=== PATIENT | male | born 1955 | race African-American/Black ===

== ENCOUNTER 2017-07-06 02:21 | Emergency (ER) | payer MEDICARE, OTHER ==
[~2017-07-06] VITALS: Ht 175.3 cm; Wt 140.6 kg
[~2017-07-06 02:21] MED LIST: ALBUTEROL2.5 MG/3 M HHN; AMLODIPINE BESY10 MG ORAL; ASPIR-LOW81 MG ORAL; ATORVASTATIN CA40 MG ORAL; ATORVASTATIN CA80 MG ORAL; GABAPENTIN300 MG ORAL; GLIPIZIDE5 MG ORAL; GLUCOSE4 GM PO; LISINOPRIL20 MG ORAL; METFORMIN HCL1000 M1 ORAL; METOPROLOL TART25 MG ORAL; NORVASC10 MG ORAL; OMEPRAZOLE20 M2 ORAL; PLAVIX75 MG ORAL; SIMETHICONE80 MG ORAL; TYLENOL EXTRA500 MG ORAL
[2017-07-06 02:29] VITALS: BP 164/96
[2017-07-06] MEDS ORDERED: LORazepam Inj 2mg/ml 1ml ONE (02:39)
[2017-07-06] MEDS ORDERED: LORazepam Inj 2mg/ml 1ml IM ONE (02:45)
[2017-07-06] MEDS ORDERED: Sodium Chloride 500ML 500 ML IV ONE (02:51)
[2017-07-06 03:12] LABS: EOSINOPHILS % (AUTO) 3.6 % (0.0-3.0); HEMATOCRIT 37.5 % (42.0-52.0); HEMOGLOBIN 12.2 G/DL (14.2-18.0); LYMPHOCYTES % (AUTO) 38.9 % (20.0-45.0); MEAN CORPUSCULAR VOLUME 95 FL (80-99); MONOCYTES % (AUTO) 3.2 % (1.0-10.0); NEUTROPHILS % (AUTO) 53.2 % (45.0-75.0); PLATELET COUNT 306 K/UL (150-450); RED BLOOD COUNT 3.95 M/UL (4.70-6.10); WHITE BLOOD COUNT 8.3 K/UL (4.8-10.8)
[2017-07-06 03:35] LABS: ANION GAP 9 mmol/L (5-15); BLOOD UREA NITROGEN 10 mg/dL (7-18); CALCIUM 7.8 MG/DL (8.5-10.1); CARBON DIOXIDE 26 MMOL/L (21-32); CHLORIDE 102 MMOL/L (98-107); CREATININE 1.2 MG/DL (0.55-1.30); POTASSIUM 3.7 MMOL/L (3.5-5.1); SODIUM 137 MMOL/L (136-145)
[2017-07-06] MEDS ORDERED: levETIRAcetam 1,000mg/NS100ml 100 ML IVPB ONE (03:45)
[2017-07-06 03:50] LABS: ALANINE AMINOTRANSFERASE 20 U/L (12-78); ALBUMIN 3.6 G/DL (3.4-5.0); ALBUMIN/GLOBULIN RATIO 0.8 (1.0-2.7); ALKALINE PHOSPHATASE 78 U/L (46-116); ASPARTATE AMINO TRANSFERASE 13 U/L (15-37); BILIRUBIN,TOTAL 0.4 MG/DL (0.2-1.0); CREATINE KINASE 476 U/L (26-308)
[2017-07-06] MEDS ORDERED: KEPPRA500 M4 ORAL (05:27)
--- NOTE | 2017-07-06 05:28 | Emergency Room Report ---
History of Present Illness General Chief Complaint: Dyspnea/Respdistress Source: Patient, EMS Present Illness HPI This is a 62-year-old male with history of high blood pressure diabetes and asthma. He present with chief complaint of shortness of breath. Onset tonight. Is a chronic problem for him. He said he get it every day. No nausea no vomiting. No chest pain. Worse with exertion. Similar symptom in the past. He was admitted to [facility] and beginning of the month and said that they kept him and did an angiogram. Said that there is no blockage to his heart. Denies any nausea vomiting. Denies any fever or chills. Slightly worse tonight and has vertigo with room spinning.. Does have a history of seizure but not on any medication. Allergies: Coded Allergies: No Known Allergies (Unverified , 07/06/17) Patient History Past Medical History: see triage record, old chart reviewed, DM, HTN, asthma Past Surgical History: other Pertinent Family History: none Social History: Denies: smoking, alcohol use, drug use Immunizations: other Reviewed Nursing Documentation: PMH: Agreed, PSxH: Agreed Nursing Documentation-PMH Past Medical History: No History, Except For Hx Hypertension: Yes Hx Asthma: Yes Review of Systems Eye: Denies: eye pain, blurred vision ENT: Denies: ear pain, nose congestion, throat swelling Respiratory: Reports: shortness of breath, Denies: cough Cardiovascular: Denies: chest pain, palpitations Gastrointestinal: Denies: abdominal pain, diarrhea, nausea, vomiting Musculoskeletal: Denies: back pain, joint pain Skin: Denies: rash Neurological: Denies: headache, numbness Endocrine: Denies: increased thirst, increased urine Hematologic/Lymphatic: Denies: easy bruising All Other Systems: negative except mentioned in HPI Physical Exam Vital Signs Date Time Temp Pulse Resp B/P (MAP) Pulse Ox O2 Delivery O2 Flow Rate FiO2 07/06/17 02:18 89 16 154/96 98 Room Air 07/06/17 02:29 97.6 vitals with high blood pressure Sp02 EP Interpretation: reviewed, normal General Appearance: well appearing, no apparent distress, alert Head: normocephalic, atraumatic Eyes: bilateral eye PERRL, bilateral eye EOMI ENT: hearing grossly normal, normal pharynx Neck: full range of motion, supple, no meningismus Respiratory: chest non-tender, lungs clear, normal breath sounds Cardiovascular #1: regular rate, rhythm, no murmur Gastrointestinal: normal bowel sounds, non tender, no mass, no organomegaly, no bruit, non-distended Musculoskeletal: back normal, gait/station normal, normal range of motion Psychiatric: mood/affect normal Skin: warm/dry Medical Decision Making Diagnostic Impression: Primary Impression: Dyspnea Qualified Codes: R06.00 - Dyspnea, unspecified Additional Impressions: Seizure Morbid obesity with BMI of 45.0-49.9, adult ER Course Patient presents with shortness of breath. X-rays unremarkable. When he arrived he started having a tonic-clonic seizure activity lasting about a minute. No incontinence of bowel or urine. No tongue laceration. It broke with Ativan. Troponin negative. EKG unremarkable. I see no evidence of ACS the, and dissection to name a few. The fact that he had an angiogram that was negative less than 30 years ago is reassuring. We'll discharge home. Symptoms resolved. His dyspnea may be secondary to his obesity. Could be sleep apnea. Lab Results Impression labs unremarkable EKG Diagnostic Results Rate: normal Rhythm: NSR ST Segments: no acute changes ASA given to the pt in ED: Yes Rhythm Strip Diag. Results Rhythm Strip Time: 05:26 EP Interpretation: yes Rate: 100 Rhythm: NSR, no PVC's, no ectopy Chest X-Ray Diagnostic Results Chest X-Ray Diagnostic Results : Chest X-Ray Ordered: Yes # of Views/Limited/Complete: 1 View Indication: Chest Pain Interpretation: no consolidation, no effusion, no pneumothorax, no acute cardiopulmonary disease Impression: No acute disease Electronically Signed by: Lacho Remy MD Last Vital Signs Date Time Temp Pulse Resp B/P (MAP) Pulse Ox O2 Delivery O2 Flow Rate FiO2 07/06/17 02:29 97.6 114 16 164/96 98 Room Air Status: improved Disposition: HOME, SELF-CARE Condition: Stable Scripts Levetiracetam (KEPPRA) 500 Mg Tablet 500 MG ORAL EVERY 12 HOURS, #60 TAB 0 Refills Prov: LACHO REMY M.D. 07/06/17 Referrals: NOT CHOSEN IPA/,REFERRING (PCP) Additional Instructions: Followup your DrDorene in 7 days. Return if symptom worsen LACHO REMY M.D. Jul 06, 2017 05:28
[2017-07-06 05:30] VITALS: BP 142/79
[2017-07-06 06:00] LABS: BILIRUBIN, URINE NEGATIVE (NEGATIVE); COLOR,URINE YELLOW; GLUCOSE, URINE (UA) 4+ (NEGATIVE); KETONES,URINE NEGATIVE (NEGATIVE); LEUKOCYTE ESTERASE ,URINE NEGATIVE (NEGATIVE); NITRITE,URINE NEGATIVE (NEGATIVE); PH,URINE 6 (4.5-8.0); PROTEIN,URINE 3+ (NEGATIVE); UROBILINOGEN,URINE NORMAL MG/DL (0.0-1.0)
[2017-07-06 06:48] VITALS: BP 148/92
[2017-07-06 07:01] VITALS: BP 148/92
[2017-07-06 07:19] LABS: APPEARANCE,URINE SLIGHTLY CLOUDY
--- NOTE | 2017-07-06 11:19 | Diagnostic Imaging Report ---
Indication: Chest pain Technique: One view of the chest Comparison: none Findings: Body habitus limits evaluation. The heart is enlarged. The lungs and pleural spaces are clear. Heart size is normal. Impression: No acute process
--- NOTE | 2017-07-18 00:18 | Cardiology Report ---
APPROVED REPORT EKG Measurement Heart [id number] Sinus tachycardia with premature atrial complexes LAS Incomplete right bundle branch block Abnormal ECG
== END 2017-07-06 07:02 | disposition home or self-care (01) ==
LOC: EDBD 02:21 → EMR 03:00 → MERGE 03:00 → EMR 07:02
DX: R06.00 Dyspnea, unspecified (principal); R56.9 Unspecified convulsions; E66.01 Morbid (severe) obesity due to excess calories; Z68.42 Body mass index [BMI] 45.0-49.9, adult; E11.9 Type 2 diabetes mellitus without complications; I10 Essential (primary) hypertension; J45.909 Unspecified asthma, uncomplicated
CPT/HCPCS: 36415; 71010; 80053; 80307; 81003; 82550; 82553; 84484; 85025; 87086; 93005; 96361; 96365; 96375; 99284; J1953; J7040

== ENCOUNTER 2017-08-31 09:43 | Emergency (ER) | payer MEDICARE, OTHER ==
[~2017-08-31] VITALS: Ht 175.3 cm; Wt 120.2 kg
[~2017-08-31 09:43] MED LIST changes: +KEPPRA500 M4 ORAL
[2017-08-31 09:45] VITALS: BP 158/89
[2017-08-31] MEDS ORDERED: Ketorolac 30mg Inj IM ONE (10:00)
[2017-08-31] MEDS ORDERED: Norco 5mg/325mg tab ORAL ONE (10:00)
[2017-08-31] MEDS ORDERED: NORCO 5-325 TA1 EACH ORAL (10:18)
[2017-08-31 10:25] VITALS: BP 150/86
--- NOTE | 2017-08-31 10:51 | Emergency Room Report ---
History of Present Illness General Chief Complaint: Pain Source: Patient, Medical Record Present Illness HPI 62-year-old male presents ED for evaluation. Patient presented by EMS with right knee pain. Denies any recent injury. Pain is chronic for the last one year but worse over the last several weeks. Patient was told that he may be a knee replacement. Pain is throbbing, 9/10, nonradiating. Notes pain but is able to bear weight. No other aggravating or relieving factors. Denies any other associated symptoms Allergies: Coded Allergies: No Known Allergies (Unverified , 02/27/15) Patient History Past Medical History: HTN, asthma, GERD, CVA/TIA, psych hx Past Surgical History: none Pertinent Family History: none Social History: Denies: smoking, alcohol use, drug use Immunizations: UTD Reviewed Nursing Documentation: PMH: Agreed, PSxH: Agreed Nursing Documentation-PMH Past Medical History: No History, Except For Hx Cardiac Problems: Yes - MT Hx Hypertension: Yes Hx Pacemaker: No Hx Asthma: Yes Hx COPD: No Hx Diabetes: Yes Hx Cancer: No Hx Gastrointestinal Problems: Yes - GERD Hx Dialysis: No History Of Psychiatric Problem: Yes - Depression Hx Neurological Problems: Yes Hx Cerebrovascular Accident: No Hx Transient Ischemic Attacks: Yes Hx Seizures: No Hx Vertigo: Yes Hx Dizziness: Yes Hx Weakness: Yes Review of Systems All Other Systems: negative except mentioned in HPI Physical Exam Vital Signs Date Time Temp Pulse Resp B/P (MAP) Pulse Ox O2 Delivery O2 Flow Rate FiO2 08/31/17 09:25 97.8 75 16 158/89 100 Room Air 97.9 Sp02 EP Interpretation: reviewed, normal General Appearance: no apparent distress, alert, GCS 15, non-toxic, obese Head: normocephalic Eyes: bilateral eye normal inspection, bilateral eye PERRL ENT: normal ENT inspection Neck: normal inspection Respiratory: normal inspection Cardiovascular #1: normal inspection Gastrointestinal: normal inspection Rectal: deferred Genitourinary: no CVA tenderness Musculoskeletal: normal range of motion, tender - R knee Neurologic: alert, oriented x3, responsive, motor strength/tone normal, sensory intact, speech normal Psychiatric: normal inspection Skin: normal inspection Lymphatic: normal inspection Medical Decision Making Diagnostic Impression: Primary Impression: Knee pain Qualified Codes: M25.561 - Pain in right knee; G89.29 - Other chronic pain ER Course Hospital Course 62-year-old male presents to ED complaining of R knee pain no trauma Differential diagnoses include: Fracture, dislocation, sprain, contusion, bursitis Clinical course Patient placed on stretcher. After initial history, physical exam reveals an obese male in no acute distress. There is some tenderness to the right knee. Full range of motion. Given obese nature, history of chronic knee pain and recommendation for knee replacement I do not believe patient requires further workup at this time. No recent trauma to require repeat imaging Given pain meds here. Marcell wrap applied. Recommend followup with orthopedics to consider knee replacement Diagnosis - knee pain stable and discharged to home with prescription for [place]. apply ice. elevate. Followup with PMD. Return to ED if symptoms recur or worsen Last Vital Signs Date Time Temp Pulse Resp B/P (MAP) Pulse Ox O2 Delivery O2 Flow Rate FiO2 08/31/17 10:25 97.9 08/31/17 10:25 83 16 150/86 100 Room Air Status: improved Disposition: HOME, SELF-CARE Condition: Stable Scripts Hydrocodone Bit/Acetaminophen 5-325* (NORCO 5-325*) 1 Each Tablet 1 TAB ORAL Q6H Y for For Pain, #20 TAB 0 Refills Prov: ALEC BRYANT M.D. 08/31/17 Patient Instructions: Knee Pain, [id number] ALEC BRYANT M.D. Aug 31, 2017 10:51
== END 2017-08-31 11:00 | disposition home or self-care (01) ==
LOC: EDBD 09:43 → EMR 10:00
DX: M25.561 Pain in right knee (principal); G89.29 Other chronic pain; I10 Essential (primary) hypertension; J45.909 Unspecified asthma, uncomplicated; K21.9 Gastro-esophageal reflux disease without esophagitis; I25.2 Old myocardial infarction; F32.9 Major depressive disorder, single episode, unspecified; Z86.73 Personal history of transient ischemic attack (TIA), and cerebral infarction without residual deficits
CPT/HCPCS: 96372; 99283; J1885

== ENCOUNTER 2018-02-23 21:31 | Inpatient (IN) | payer MEDICARE, OTHER ==
[~2018-02-23] VITALS: Ht 177.8 cm; Wt 117.9 kg
[~2018-02-23 21:31] MED LIST changes: +NORCO 5-325 TA1 EACH ORAL
[2018-02-24 01:10] VITALS: BP 133/76
[2018-02-24] MEDS ORDERED: BENADRYL25 M3 PO (03:09)
[2018-02-24] MEDS ORDERED: LD2JL30 TOPIC (03:09)
[2018-02-24] MEDS ORDERED: VENTOLIN HFA18 GM INH (03:09)
[2018-02-24] MEDS ORDERED: NORVASC10 MG ORAL (03:09)
[2018-02-24] MEDS ORDERED: METFORMIN HCL500 M1 ORAL (03:09)
[2018-02-24] MEDS ORDERED: NORCO 10-325 T1 EACH ORAL (03:09)
[2018-02-24] MEDS ORDERED: BACLOFEN10 MG ORAL (03:09)
[2018-02-24] MEDS ORDERED: PEPCID AC20 M2 PO (03:09)
[2018-02-24] MEDS ORDERED: GABAPENTIN800 MG ORAL (03:09)
[2018-02-24] MEDS ORDERED: LIPITOR80 MG ORAL (03:09)
[2018-02-24] MEDS ORDERED: LISINOPRIL5 MG ORAL (03:09)
[2018-02-24] MEDS ORDERED: Albuterol 90mcg Inhaler 8gm INH PRN (03:15)
[2018-02-24 04:00] VITALS: BP 110/65
[2018-02-24 05:07] LABS: BASOPHILS % (AUTO) 0.8 % (0.0-2.0); EOSINOPHILS % (AUTO) 3.5 % (0.0-3.0); HEMATOCRIT 33.5 % (42.0-52.0); HEMOGLOBIN 11.2 G/DL (14.2-18.0); MEAN CORPUSCULAR VOLUME 94 FL (80-99); MONOCYTES % (AUTO) 6.9 % (1.0-10.0); NEUTROPHILS % (AUTO) 56.9 % (45.0-75.0); PLATELET COUNT 167 K/UL (150-450); RED BLOOD COUNT 3.58 M/UL (4.70-6.10); RED CELL DISTRIBUTION WIDTH 11.5 % (11.6-14.8); WHITE BLOOD COUNT 6.2 K/UL (4.8-10.8)
[2018-02-24 05:22] LABS: PHOSPHORUS 3.5 MG/DL (2.5-4.9)
[2018-02-24 05:30] LABS: ALANINE AMINOTRANSFERASE 101 U/L (12-78); ALBUMIN 3.3 G/DL (3.4-5.0); ALKALINE PHOSPHATASE 78 U/L (46-116); ANION GAP 9 mmol/L (5-15); ASPARTATE AMINO TRANSFERASE 115 U/L (15-37); BILIRUBIN,TOTAL 0.6 MG/DL (0.2-1.0); BLOOD UREA NITROGEN 12 mg/dL (7-18); CALCIUM 8.3 MG/DL (8.5-10.1); CARBON DIOXIDE 28 MMOL/L (21-32); CHLORIDE 105 MMOL/L (98-107); CREATININE 1.3 MG/DL (0.55-1.30); POTASSIUM 3.8 MMOL/L (3.5-5.1); SODIUM 141 MMOL/L (136-145)
[2018-02-24] MEDS: NovoLOG Insulin Flexpen SUBQ SCH ×4 (06:35→20:53)
[2018-02-24] MEDS: Heparin 5000 units/ml inj SUBQ SCH ×3 (06:36→20:54)
[2018-02-24] MEDS: GlipiZIDE 5mg tab ORAL SCH ×2 (06:36→16:43)
[2018-02-24] MEDS: HYDROcodone/Acetamin 10/325 tab ORAL PRN (06:42)
[2018-02-24 08:00] VITALS: BP 123/75
[2018-02-24] MEDS: metFORMIN 500mg tab ORAL SCH ×2 (08:38→17:32)
[2018-02-24] MEDS: Aspirin Baby 81mg ORAL SCH (08:38)
[2018-02-24] MEDS: Lisinopril 10mg tab ORAL SCH (08:39)
[2018-02-24] MEDS ORDERED: Albuterol/Ipratropium 3ml neb HHN PRN (10:45)
--- NOTE | 2018-02-24 10:51 | Consultation ---
History of Present Illness General Date patient seen: Feb 24, 2018 Time patient seen: 09:30 Chief Complaint: chest pain, SOB Referring physician: dr Ortez Reason for Consultation: SOB/pulm consult Present Illness HPI 63 y/old male with PMH significant for HTN, DM, CAD, questionable NC, hyperlipidemia, CVA, asthma initially presented to [facility] with complaint of chest pain. Upon evaluation troponin was negative , EKG revealed normal sinus rhythm, no acute ischemic changes Noted elevated d-dimer Chest x-ray was unremarkable Patient was transferred to [facility] for further management Upon questioning patient complained of intermittent chest pain with associated shortness of breath. He reported history of NC. He did have cardiac catheterization in the past, but no stents were placed as per patient. Pulse oximetry stable on room air, no tachypnea, no tachycardia Noted elevated LFT Patient denied smoking and illicit street drugs, but admits to alcohol use 2- 3 times a week Patient was admitted to telemetry floor for further management Allergies: Coded Allergies: No Known Allergies (Unverified , 02/27/15) Medication History Scheduled Albuterol Sulfate (Ventolin Hfa), 1 PUFF INH EVERY 6 HOURS, (Reported) Albuterol Sulfate* (Albuterol Sulfate Hhn*), 2.5 MG HHN Q6HRT Amlodipine Besylate (Norvasc), 10 MG ORAL DAILY, (Reported) Aspirin* (Aspir-Low*), 81 MG ORAL DAILY, (Reported) Atorvastatin (Lipitor), 40 MG ORAL BEDTIME, (Reported) Baclofen* (Baclofen*), 10 MG ORAL THREE TIMES A DAY, (Reported) Gabapentin* (Gabapentin*), 800 MG ORAL THREE TIMES A DAY, (Reported) Glipizide* (Glipizide*), 5 MG ORAL BIDAC, (Reported) Lidocaine HCL 2% Jelly* (Lidocaine Jelly 2%*), 5 ML TOPIC DAILY, (Reported) Lisinopril (Lisinopril*), 10 MG ORAL DAILY, (Reported) Metformin Hcl* (Metformin Hcl*), 500 MG ORAL TWICE A DAY, (Reported) Scheduled PRN Acetaminophen* (Tylenol Extra Strength*), 500 MG ORAL Q6H PRN for Mild Pain/ Temp > 100.5, (Reported) Diphenhydramine HCl (Benadryl), 25 MG PO BID PRN for Itching, (Reported) Hydrocodone Bit/Acetaminophen 10-325* (Homer 10-325*), 1 TAB ORAL Q6H PRN for For Pain, (Reported) Miscellaneous Medications Famotidine (Pepcid Ac), 20 MG PO, (Reported) Discontinued Medications Amlodipine Besylate (Norvasc), 5 MG ORAL DAILY Discontinued Reason: Medication dose changed Atorvastatin Calcium* (Lipitor*), 80 MG ORAL BEDTIME, (Reported) Discontinued Reason: Medication dose changed Clopidogrel Bisulfate* (Plavix*), 75 MG ORAL DAILY Discontinued Reason: Pt stopped taking med Gabapentin* (Gabapentin*), 300 MG ORAL THREE TIMES A DAY, (Reported) Discontinued Reason: Medication dose changed Hydrocodone Bit/Acetaminophen 5-325* (Homer 5-325*), 1 TAB ORAL Q6H PRN for For Pain Discontinued Reason: Medication dose changed Levetiracetam (Keppra), 500 MG ORAL EVERY 12 HOURS Discontinued Reason: Pt stopped taking med Lisinopril (Lisinopril*), 20 MG ORAL DAILY, (Reported) Discontinued Reason: Medication dose changed Metformin Hcl* (Metformin Hcl*), 1,000 MG ORAL DAILY, (Reported) Discontinued Reason: Medication dose changed Metoprolol Tartrate* (Metoprolol Tartrate*), 12.5 MG ORAL BID, (Reported) Discontinued Reason: Pt stopped taking med Omeprazole (Omeprazole), 20 MG ORAL DAILY, (Reported) Discontinued Reason: Pt stopped taking med Simethicone* (Simethicone*), 80 MG ORAL Q8H PRN for Gas, (Reported) Discontinued Reason: Pt stopped taking med Patient History History Provided By: Patient Healthcare decision maker Resuscitation status Full Code Advanced Directive on File No Past Medical/Surgical History Past Medical/Surgical History: (1) Hyperlipidemia (2) HTN (hypertension) (3) DM (diabetes mellitus) (4) CAD (coronary artery disease) Review of Systems Constitutional: Reports: weakness Eye: Reports: blurred vision ENT: Reports: other - dental problems Cardiovascular: Reports: see HPI Gastrointestinal: Reports: constipation Genitourinary: Reports: no symptoms Musculoskeletal: Reports: muscle pain Skin: Reports: no symptoms Psychiatric: Reports: other - anxiety Neurological: Reports: other - hx of TIA, CVA Endocrine: Reports: other - DM Hematologic/Lymphatic: Reports: no symptoms Physical Exam General Appearance: no apparent distress, alert Lines, tubes and drains: peripheral HEENT: normocephalic, atraumatic, anicteric, mucous membranes moist Neck: non-tender, supple, normal inspection Respiratory/Chest: lungs clear - with moderate air exchange , no respiratory distress, no accessory muscle use Cardiovascular/Chest: normal rate, regular rhythm - SR on tele, distant heart sounds Abdomen: non tender, soft - obese Extremities: normal range of motion, non-tender, no calf tenderness, normal capillary refill Skin Exam: warm/dry Neurologic: no motor/sensory deficits, alert, oriented x 3, responsive Musculoskeletal: normal muscle bulk Last 24 Hour Vital Signs Date Time Temp Pulse Resp B/P (MAP) Pulse Ox O2 Delivery O2 Flow Rate FiO2 02/24/18 09:00 Room Air 02/24/18 08:39 123/75 02/24/18 08:38 77 123/75 02/24/18 08:00 97.4 77 22 123/75 (91) 100 97.4 02/24/18 07:57 72 02/24/18 04:00 97.7 71 20 110/65 (80) 96 97.7 02/24/18 04:00 73 02/24/18 01:10 97.7 74 20 133/76 (95) 94 97.7 02/24/18 01:01 Room Air 02/24/18 01:00 73 Intake and Output 02/23/18 02/24/18 19:00 07:00 Intake Total 480 ml Output Total 425 ml Balance 55 ml Intake Oral 480 ml Output Urine Total 425 ml Laboratory Tests Test 02/24/18 04:45 White Blood Count 6.2 K/UL (4.8-10.8) Red Blood Count 3.58 M/UL (4.70-6.10) L Hemoglobin 11.2 G/DL (14.2-18.0) L Hematocrit 33.5 % (42.0-52.0) L Mean Corpuscular Volume 94 FL (80-99) Mean Corpuscular Hemoglobin 31.3 PG (27.0-31.0) H Mean Corpuscular Hemoglobin Concent 33.4 G/DL (32.0-36.0) Red Cell Distribution Width 11.5 % (11.6-14.8) L Platelet Count 167 K/UL (150-450) Mean Platelet Volume 9.9 FL (6.5-10.1) Neutrophils (%) (Auto) 56.9 % (45.0-75.0) Lymphocytes (%) (Auto) 32.0 % (20.0-45.0) Monocytes (%) (Auto) 6.9 % (1.0-10.0) Eosinophils (%) (Auto) 3.5 % (0.0-3.0) H Basophils (%) (Auto) 0.8 % (0.0-2.0) Sodium Level 141 MMOL/L (136-145) Potassium Level 3.8 MMOL/L (3.5-5.1) Chloride Level 105 MMOL/L (98-107) Carbon Dioxide Level 28 MMOL/L (21-32) Anion Gap 9 mmol/L (5-15) Blood Urea Nitrogen 12 mg/dL (7-18) Creatinine 1.3 MG/DL (0.55-1.30) Estimat Glomerular Filtration Rate > 60 mL/min (>60) Glucose Level 284 MG/DL (74-106) H Hemoglobin A1c 8.0 % (4.3-6.0) H Calcium Level 8.3 MG/DL (8.5-10.1) L Phosphorus Level 3.5 MG/DL (2.5-4.9) Magnesium Level 1.8 MG/DL (1.8-2.4) Total Bilirubin 0.6 MG/DL (0.2-1.0) Aspartate Amino Transf (AST/SGOT) 115 U/L (15-37) H Alanine Aminotransferase (ALT/SGPT) 101 U/L (12-78) H Alkaline Phosphatase 78 U/L (46-116) Troponin I 0.000 ng/mL (0.000-0.056) Total Protein 6.7 G/DL (6.4-8.2) Albumin 3.3 G/DL (3.4-5.0) L Globulin 3.4 g/dL Albumin/Globulin Ratio 1.0 (1.0-2.7) Height (Feet): 5 Height (Inches): 10.00 Weight (Pounds): 260 Medications Current Medications Medications (Trade) Dose Ordered Sig/Flex Route PRN Reason Start Time Stop Time Status Last Admin Dose Admin Acetaminophen (Tylenol) 650 mg Q6H PRN ORAL Mild Pain/Temp > 100.5 02/24/18 03:15 03/26/18 03:14 Acetaminophen/ Hydrocodone Bitart (Homer 10/325) 1 tab Q6HR PRN ORAL For Pain 02/24/18 03:15 03/03/18 03:14 02/24/18 06:42 Albuterol Sulfate (Proventil MDI) 2 puff Q4H PRN INH Shortness of Breath 02/24/18 03:15 03/26/18 03:14 Amlodipine Besylate (Norvasc) 10 mg DAILY ORAL 02/24/18 09:00 03/26/18 08:59 02/24/18 08:38 Aspirin (ASA) 81 mg DAILY ORAL 02/24/18 09:00 03/26/18 08:59 02/24/18 08:38 Atorvastatin Calcium (Lipitor) 40 mg BEDTIME ORAL 02/24/18 21:00 03/26/18 20:59 Baclofen (Lioresal) 10 mg THREE TIMES A DAY PRN ORAL Muscle Spasm 02/24/18 03:15 03/26/18 03:14 Dextrose (Dextrose 50%) 25 ml STAT PRN IV Hypoglycemia 02/24/18 03:15 03/26/18 03:14 Dextrose (Dextrose 50%) 50 ml STAT PRN IV Hypoglycemia 02/24/18 03:15 03/26/18 03:14 Diphenhydramine HCl (Benadryl) 25 mg BID PRN ORAL Itching 02/24/18 03:15 03/26/18 03:14 Famotidine (Pepcid) 20 mg DAILY ORAL 02/24/18 09:00 03/26/18 08:59 02/24/18 08:38 Gabapentin (Neurontin) 800 mg THREE TIMES A DAY ORAL 02/24/18 09:00 03/26/18 08:59 02/24/18 08:37 Glipizide (Glucotrol) 5 mg BIAC ORAL 02/24/18 06:30 03/26/18 06:29 02/24/18 06:36 Heparin Sodium (Porcine) (Heparin 5000 units/ml) 5,000 units EVERY 8 HOURS SUBQ 02/24/18 06:00 03/26/18 05:59 02/24/18 06:36 Insulin Aspart (NovoLOG) BEFORE MEALS AND HS SUBQ 02/24/18 06:30 03/26/18 06:29 02/24/18 06:35 Lidocaine (Xylocaine 5% cream) 1 applic PRN PRN TOPIC Pain Scale (3-5) 02/24/18 03:15 03/26/18 03:14 Lisinopril (Zestril) 10 mg DAILY ORAL 02/24/18 09:00 03/26/18 08:59 02/24/18 08:39 Metformin HCl (Glucophage) 500 mg BID ORAL 02/24/18 09:00 03/26/18 08:59 02/24/18 08:38 Ondansetron HCl (Zofran) 4 mg Q4HR PRN IVP Nausea & Vomiting 02/24/18 03:15 03/26/18 03:14 Assessment/Plan Status Narrative ASSESSMENT chest pain rule out ACS asthma elevated D-dimer CAD with ? hx of NC HTN hyperlipidemia diabetes mellitus transaminitis ETOH use , possible abuse PLAN OF CARE telemetry serial troponin EKG ECHO cardio evaluation Venous duplex BLE stat O2 prn titrate pulmonary toilet CXR from [place] stable cardio eval pending aspirin Nitroglycerin prn for pain BP management with CCB and GOLDY, consider BB per cardio discretion DVT, GI prophylaxis BS management with oral anti-glycemic and SSI prn, OiD1c-7.0 not at goal continue statin trend LFT check abdominal ultrasound and hepatitis panel pain management bowel regimen supportive care case discussed and evaluated by supervising physician Palak Wagoner NP Feb 24, 2018 10:51
[2018-02-24 12:00] VITALS: BP 116/85
[2018-02-24 16:00] VITALS: BP 136/71
[2018-02-24] MEDS ORDERED: Lexiscan 0.4mg/5ml syringe IV PRN (18:15)
--- NOTE | 2018-02-24 18:23 | History & Physical ---
History and Physical History & Physicial Dictated for Int med-Dr Ortez no. [id number]. Bennett Jenkins MD Feb 24, 2018 18:23
--- NOTE | 2018-02-24 19:15 | History and Physical Report ---
DATE OF ADMISSION: 02/24/2018 CHIEF COMPLAINT: The patient is a 62-year-old male with history of coronary artery disease, who presents with chief complaint of chest pain. HISTORY OF PRESENT ILLNESS: The patient has a history of coronary artery disease. The patient is status post myocardial infarction in 2016. The patient had a cardiac catheterization, but no stents placed in 2016. The patient states history of present illness began one week ago. The patient began to experience chest pain. Chest pain is described as substernal. There is no radiation to the jaw or to the arm. It has been on and off. The pain is sharp and burning in nature. The patient initially presented to [facility] Emergency Room. The patient was transferred to [facility] for insurance purposes. The patient is admitted for chest pain to rule out acute coronary syndrome. REVIEW OF SYSTEMS: CONSTITUTIONAL: The patient denies weight loss or weight gain. The patient denies fevers or chills. HEENT: The patient denies ear or throat pain. The patient denies headache. CARDIOVASCULAR: The patient complains of chest pain as above. The patient denies palpitations. CHEST: The patient complains of shortness of breath. The patient denies wheezes. ABDOMINAL: The patient denies nausea, vomiting, diarrhea, or constipation. GENITOURINARY: The patient denies dysuria or increased frequency of urination. NEUROMUSCULAR: The patient denies seizures or generalized weakness. PAST MEDICAL HISTORY: Significant for: 1. Type 2 diabetes. 2. Hypercholesterolemia. 3. Hypertension. 4. Coronary artery disease as above. 5. Asthma. PAST SURGICAL HISTORY: Significant for laparoscopic cholecystectomy. CURRENT MEDICATIONS: 1. Lisinopril 10 mg p.o. daily. 2. Glipizide 10 mg p.o. twice daily. 3. Metformin 1000 mg p.o. twice daily. 4. Metoprolol of an unknown dose twice daily. 5. Baclofen 20 mg p.o. 3 times daily. 6. Lipitor 20 mg p.o. daily. 7. Lasix 20 mg p.o. daily. 8. Aspirin 325 mg p.o. daily. 9. Lantus insulin of an unknown dose daily. 10. Albuterol nebulized. ALLERGIES: No known drug allergies. SOCIAL HISTORY: The patient is a . The patient denies tobacco use. The patient admits to occasional alcohol use. The patient is retired. PHYSICAL EXAMINATION: VITAL SIGNS: Temperature 98.3, respirations 18, pulse 84, blood pressure 110/65. GENERAL: The patient is a well-developed, well-nourished male, in no apparent distress. HEENT: Eyes, pupils equal and responsive to light and accommodation. Extraocular movements are intact. NECK: Supple. No lymphadenopathy. CHEST: Lungs are clear to auscultation bilaterally without wheezes or rales. CARDIOVASCULAR: Regular rate. S1, S2 normal without murmurs, rubs, or gallops. ABDOMEN: Soft, nontender, and nondistended. Positive bowel sounds. No evidence of hepatosplenomegaly. Currently, no rebound or guarding noted. EXTREMITIES: Negative for clubbing, cyanosis, or edema. RECTAL: Refused. GENITAL: Refused. NEUROLOGIC: Cranial nerves II through XII are grossly intact without focal deficits. Motor strength is 5/5 bilaterally intact. Deep tendon reflexes are 2+, plantar. LABORATORY STUDIES: WBC 6.0, hemoglobin 12.0, hematocrit 34.0, platelets 169,000. Sodium 138, potassium 3.5, chloride 104, CO2 24, BUN 8, creatinine 1.14, glucose elevated at 223. Troponin less than 0.02. ASSESSMENT: This is a 62-year-old male with: 1. Chest pain. 2. History of coronary artery disease. 3. Diabetes type 2. 4. Hypertension. 5. Hypercholesterolemia. 6. Asthma. TREATMENT: 1. Chest pain/history of coronary artery disease. A Cardiology consultation has been obtained with Dr. Tran. The patient will have troponins performed every 8 hours for total of three. A BNP is pending. The patient will require cardiac stress test during this hospitalization with history of coronary artery disease. 2. Diabetes type 2. A NovoLog sliding scale has been instituted. 3. Hypertension. Continue lisinopril and Norvasc as above. 4. Hypercholesterolemia. Continue Lipitor as above. 5. Asthma. The patient will be offered albuterol nebulized q.4 h. p.r.n. Bennett Jenkins M.D. DR: Burton JOB#: [id number] CC:
[2018-02-24 20:00] VITALS: BP 141/75
[2018-02-24] MEDS: Nitroglycerin 2% oint pkt TOPIC SCH (20:52)
[2018-02-25] VITALS: BP 139/75
[2018-02-25 04:00] VITALS: BP 143/77
[2018-02-25 05:59] LABS: BASOPHILS % (AUTO) 1.3 % (0.0-2.0); HEMATOCRIT 36.6 % (42.0-52.0); HEMOGLOBIN 12.4 G/DL (14.2-18.0); LYMPHOCYTES % (AUTO) 26.3 % (20.0-45.0); MEAN CORPUSCULAR VOLUME 94 FL (80-99); MONOCYTES % (AUTO) 4.9 % (1.0-10.0); NEUTROPHILS % (AUTO) 63.6 % (45.0-75.0); PLATELET COUNT 187 K/UL (150-450); RED CELL DISTRIBUTION WIDTH 11.6 % (11.6-14.8); WHITE BLOOD COUNT 7.9 K/UL (4.8-10.8)
[2018-02-25 06:11] LABS: ALANINE AMINOTRANSFERASE 78 U/L (12-78); ALBUMIN 3.4 G/DL (3.4-5.0); ALBUMIN/GLOBULIN RATIO 0.8 (1.0-2.7); ALKALINE PHOSPHATASE 84 U/L (46-116); ANION GAP 7 mmol/L (5-15); ASPARTATE AMINO TRANSFERASE 36 U/L (15-37); BILIRUBIN,TOTAL 0.5 MG/DL (0.2-1.0); BLOOD UREA NITROGEN 12 mg/dL (7-18); CALCIUM 8.5 MG/DL (8.5-10.1); CARBON DIOXIDE 28 MMOL/L (21-32); CHLORIDE 105 MMOL/L (98-107); CREATININE 1.1 MG/DL (0.55-1.30); GAMMA GLUTAMYL TRANSPEPTIDASE 180 U/L (5-85); POTASSIUM 3.9 MMOL/L (3.5-5.1); SODIUM 140 MMOL/L (136-145)
[2018-02-25] MEDS: GlipiZIDE 5mg tab ORAL SCH ×2 (06:16→18:19)
[2018-02-25] MEDS: Nitroglycerin 2% oint pkt TOPIC SCH ×3 (06:17→18:20)
[2018-02-25] MEDS: NovoLOG Insulin Flexpen SUBQ SCH ×4 (06:18→22:05)
[2018-02-25] MEDS: Heparin 5000 units/ml inj SUBQ SCH ×3 (06:20→22:06)
[2018-02-25 08:00] VITALS: BP 137/63
[2018-02-25] MEDS: metFORMIN 500mg tab ORAL SCH ×2 (09:15→18:19)
[2018-02-25] MEDS: Aspirin Baby 81mg ORAL SCH (09:16)
[2018-02-25] MEDS: Lisinopril 10mg tab ORAL SCH (09:16)
--- NOTE | 2018-02-25 09:39 | Pulmonology Progress Note ---
Assessment/Plan Assessment/Plan ASSESSMENT chest pain rule out ACS asthma elevated D-dimer CAD with ? hx of [place] HTN hyperlipidemia diabetes mellitus transaminitis ETOH use , possible abuse PLAN OF CARE telemetry serial troponin x2 negative EKG non specific changes, r/o for acute [place] ECHO with pEF 55-60%, no WMA cardio evaluation pending for this am stress test in am aspirin Nitro topical BP management with CCB and GOLDY, consider BB - per cardio discretion Venous duplex BLE prelim negative for acute DVT O2 prn titrate pulmonary toilet CXR from [place] stable DVT, GI prophylaxis BS management with oral anti-glycemic and SSI prn, [id number] not at goal continue statin , check lipid panel in am trend LFT down to normal ? to alcohol use, elevated GGT hepatitis panel pending pain management bowel regimen supportive care case discussed and evaluated by supervising physician Subjective Allergies: Coded Allergies: No Known Allergies (Unverified , 02/27/15) Subjective yesterday afternoon c/o severe chest pain, troponin negative x 2 ECG with nonspecific changes, started on Nitro topical and Morphine, pain resolved stress test pending along with cardio eval this am no chest pain, no SOB pulse ox stable on RA Objective Last 24 Hour Vital Signs Date Time Temp Pulse Resp B/P (MAP) Pulse Ox O2 Delivery O2 Flow Rate FiO2 02/25/18 09:16 78 137/63 02/25/18 09:16 137/63 02/25/18 08:31 Room Air 02/25/18 08:25 78 18 Room Air 21 02/25/18 08:00 97.6 78 19 137/63 (87) 97 97.6 02/25/18 06:17 143/77 02/25/18 04:00 97.6 71 22 143/77 (99) 95 97.6 02/25/18 04:00 88 02/25/18 00:00 98.1 87 20 139/75 (96) 95 98.1 02/24/18 21:00 Room Air 02/24/18 20:52 136/71 02/24/18 20:00 97.8 72 22 141/75 (97) 97 97.8 02/24/18 20:00 73 02/24/18 16:00 96.8 76 21 136/71 (92) 96 96.8 02/24/18 15:25 71 02/24/18 12:00 97.2 73 21 116/85 (95) 99 97.2 02/24/18 11:56 64 Intake and Output 02/24/18 02/25/18 19:00 07:00 Intake Total 520 ml 300 ml Output Total 800 ml 550 ml Balance -280 ml -250 ml Intake Oral 520 ml 300 ml Output Urine Total 800 ml 550 ml Objective General Appearance: no apparent distress, alert Lines, tubes and drains: peripheral HEENT: normocephalic, atraumatic, anicteric, mucous membranes moist Neck: non-tender, supple, normal inspection Respiratory/Chest: lungs clear - with moderate air exchange , no respiratory distress, no accessory muscle use Cardiovascular/Chest: normal rate, regular rhythm - SR on tele, distant heart sounds Abdomen: non tender, soft - obese Extremities: normal range of motion, non-tender, no calf tenderness, normal capillary refill Skin Exam: warm/dry Neurologic: no motor/sensory deficits, alert, oriented x 3, responsive Musculoskeletal: normal muscle bulk Laboratory Tests 02/24/18 17:45: Troponin I 0.000 02/25/18 05:00: White Blood Count 7.9, Red Blood Count 3.90L, Hemoglobin 12.4L, Hematocrit 36.6L , Mean Corpuscular Volume 94, Mean Corpuscular Hemoglobin 31.9H, Mean Corpuscular Hemoglobin Concent 34.0, Red Cell Distribution Width 11.6, Platelet Count 187, Mean Platelet Volume 11.1H, Neutrophils (%) (Auto) 63.6, Lymphocytes (%) (Auto) 26.3, Monocytes (%) (Auto) 4.9, Eosinophils (%) (Auto) 4.0H, Basophils (%) (Auto) 1.3, Sodium Level 140, Potassium Level 3.9, Chloride Level 105, Carbon Dioxide Level 28, Anion Gap 7, Blood Urea Nitrogen 12, Creatinine 1.1, Estimat Glomerular Filtration Rate > 60, Glucose Level 167#H, Calcium Level 8.5, Total Bilirubin 0.5, Gamma Glutamyl Transpeptidase 180H, Aspartate Amino Transf (AST/SGOT) 36, Alanine Aminotransferase (ALT/SGPT) 78, Alkaline Phosphatase 84, Total Protein 7.5, Albumin 3.4, Globulin 4.1, Albumin/Globulin Ratio 0.8L, Hepatitis A IgM Antibody [Pending], Hepatitis B Surface Antigen [ Pending], Hepatitis B Core IgM Antibody [Pending], Hepatitis C Antibody [Pending ] Current Medications Medications (Trade) Dose Ordered Sig/Flex Route PRN Reason Start Time Stop Time Status Last Admin Dose Admin Acetaminophen (Tylenol) 650 mg Q6H PRN ORAL Mild Pain/Temp > 100.5 02/24/18 03:15 03/26/18 03:14 Acetaminophen/ Hydrocodone Bitart ([place] 10/325) 1 tab Q6HR PRN ORAL For Pain 02/24/18 03:15 03/03/18 03:14 02/24/18 06:42 Albuterol/ Ipratropium (Albuterol/ Ipratropium) 3 ml Q4H PRN HHN Shortness of Breath 02/24/18 10:45 03/01/18 10:44 Amlodipine Besylate (Norvasc) 10 mg DAILY ORAL 02/24/18 09:00 03/26/18 08:59 02/25/18 09:16 Aspirin (ASA) 81 mg DAILY ORAL 02/24/18 09:00 03/26/18 08:59 02/25/18 09:16 Atorvastatin Calcium (Lipitor) 40 mg BEDTIME ORAL 02/24/18 21:00 03/26/18 20:59 02/24/18 20:51 Baclofen (Lioresal) 10 mg THREE TIMES A DAY PRN ORAL Muscle Spasm 02/24/18 03:15 03/26/18 03:14 02/25/18 00:46 Dextrose (Dextrose 50%) 25 ml STAT PRN IV Hypoglycemia 02/24/18 03:15 03/26/18 03:14 Dextrose (Dextrose 50%) 50 ml STAT PRN IV Hypoglycemia 02/24/18 03:15 03/26/18 03:14 Diphenhydramine HCl (Benadryl) 25 mg BID PRN ORAL Itching 02/24/18 03:15 03/26/18 03:14 Famotidine (Pepcid) 20 mg DAILY ORAL 02/24/18 09:00 03/26/18 08:59 02/25/18 09:16 Gabapentin (Neurontin) 800 mg THREE TIMES A DAY ORAL 02/24/18 09:00 03/26/18 08:59 02/25/18 09:16 Glipizide (Glucotrol) 5 mg BIAC ORAL 02/24/18 06:30 03/26/18 06:29 02/25/18 06:16 Heparin Sodium (Porcine) (Heparin 5000 units/ml) 5,000 units EVERY 8 HOURS SUBQ 02/24/18 06:00 03/26/18 05:59 02/25/18 06:20 Insulin Aspart (NovoLOG) BEFORE MEALS AND HS SUBQ 02/24/18 06:30 03/26/18 06:29 02/25/18 06:18 Lidocaine (Xylocaine 5% cream) 1 applic PRN PRN TOPIC Pain Scale (3-5) 02/24/18 03:15 03/26/18 03:14 Lisinopril (Zestril) 10 mg DAILY ORAL 02/24/18 09:00 03/26/18 08:59 02/25/18 09:16 Metformin HCl (Glucophage) 500 mg BID ORAL 02/24/18 09:00 03/26/18 08:59 02/25/18 09:15 Morphine Sulfate (Morphine Sulfate) 2 mg Q4H PRN IVP For Pain 02/24/18 18:00 03/03/18 17:59 Nitroglycerin (Nitro-Bid) 1 inch TID@0600,1200,1800 TOPIC 02/24/18 19:00 03/26/18 18:59 02/25/18 06:17 Ondansetron HCl (Zofran) 4 mg Q4HR PRN IVP Nausea & Vomiting 02/24/18 03:15 03/26/18 03:14 Regadenoson (Lexiscan) 0.4 mg ONCE PRN IV STRESS TEST 02/24/18 18:15 02/26/18 23:59 Palak Wagoner NP Feb 25, 2018 09:39
[2018-02-25 10:11] LABS: CHOLESTEROL 142 MG/DL (< 200); HDL CHOLESTEROL 36 MG/DL (40-60); TRIGLYCERIDES 236 MG/DL (30-150)
[2018-02-25 12:00] VITALS: BP 126/72
--- NOTE | 2018-02-25 13:35 | Internal Med Progress Note ---
Subjective Date of Service: Feb 25, 2018 Physician Name Bennett Jenkins Attending Physician Wade Ortez MD Current Medications Medications (Trade) Dose Ordered Sig/Flex Route PRN Reason Start Time Stop Time Status Last Admin Dose Admin Acetaminophen (Tylenol) 650 mg Q6H PRN ORAL Mild Pain/Temp > 100.5 02/24/18 03:15 03/26/18 03:14 Acetaminophen/ Hydrocodone Bitart ([place] 10/325) 1 tab Q6HR PRN ORAL For Pain 02/24/18 03:15 03/03/18 03:14 02/24/18 06:42 Albuterol/ Ipratropium (Albuterol/ Ipratropium) 3 ml Q4H PRN HHN Shortness of Breath 02/24/18 10:45 03/01/18 10:44 Amlodipine Besylate (Norvasc) 10 mg DAILY ORAL 02/24/18 09:00 03/26/18 08:59 02/25/18 09:16 Aspirin (ASA) 81 mg DAILY ORAL 02/24/18 09:00 03/26/18 08:59 02/25/18 09:16 Atorvastatin Calcium (Lipitor) 40 mg BEDTIME ORAL 02/24/18 21:00 03/26/18 20:59 02/24/18 20:51 Baclofen (Lioresal) 10 mg THREE TIMES A DAY PRN ORAL Muscle Spasm 02/24/18 03:15 03/26/18 03:14 02/25/18 00:46 Dextrose (Dextrose 50%) 25 ml STAT PRN IV Hypoglycemia 02/24/18 03:15 03/26/18 03:14 Dextrose (Dextrose 50%) 50 ml STAT PRN IV Hypoglycemia 02/24/18 03:15 03/26/18 03:14 Diphenhydramine HCl (Benadryl) 25 mg BID PRN ORAL Itching 02/24/18 03:15 03/26/18 03:14 Famotidine (Pepcid) 20 mg DAILY ORAL 02/24/18 09:00 03/26/18 08:59 02/25/18 09:16 Gabapentin (Neurontin) 800 mg THREE TIMES A DAY ORAL 02/24/18 09:00 03/26/18 08:59 02/25/18 12:12 Glipizide (Glucotrol) 5 mg BIAC ORAL 02/24/18 06:30 03/26/18 06:29 02/25/18 06:16 Heparin Sodium (Porcine) (Heparin 5000 units/ml) 5,000 units EVERY 8 HOURS SUBQ 02/24/18 06:00 03/26/18 05:59 02/25/18 06:20 Insulin Aspart (NovoLOG) BEFORE MEALS AND HS SUBQ 02/24/18 06:30 03/26/18 06:29 02/25/18 12:17 Lidocaine (Xylocaine 5% cream) 1 applic PRN PRN TOPIC Pain Scale (3-5) 02/24/18 03:15 03/26/18 03:14 Lisinopril (Zestril) 10 mg DAILY ORAL 02/24/18 09:00 03/26/18 08:59 02/25/18 09:16 Metformin HCl (Glucophage) 500 mg BID ORAL 02/24/18 09:00 03/26/18 08:59 02/25/18 09:15 Morphine Sulfate (Morphine Sulfate) 2 mg Q4H PRN IVP For Pain 02/24/18 18:00 03/03/18 17:59 Nitroglycerin (Nitro-Bid) 1 inch TID@0600,1200,1800 TOPIC 02/24/18 19:00 03/26/18 18:59 02/25/18 12:12 Ondansetron HCl (Zofran) 4 mg Q4HR PRN IVP Nausea & Vomiting 02/24/18 03:15 03/26/18 03:14 Regadenoson (Lexiscan) 0.4 mg ONCE PRN IV STRESS TEST 02/24/18 18:15 02/26/18 23:59 Allergies: Coded Allergies: No Known Allergies (Unverified , 02/27/15) ROS Limited/Unobtainable: No Constitutional: Reports: no symptoms HEENT: Reports: no symptoms Cardiovascular: Reports: chest pain Respiratory: Reports: no symptoms Gastrointestinal/Abdominal: Reports: no symptoms Genitourinary: Reports: no symptoms Neurologic/Psychiatric: Reports: no symptoms Subjective 62 YO M admitted with chest pain. Cover for Int Sánchez-Dr Ortez. Await cardiolite stress test Objective Last Vital Signs Date Time Temp Pulse Resp B/P (MAP) Pulse Ox O2 Delivery O2 Flow Rate FiO2 02/25/18 12:12 126/72 8/19/18 09:16 78 02/25/18 08:31 Room Air 02/25/18 08:25 18 21 02/25/18 08:00 97.6 97 97.6 General Appearance: WD/WN, no apparent distress, alert, obese EENT: PERRL/EOMI, normal ENT inspection Neck: non-tender, normal alignment, supple, normal inspection Cardiovascular: normal peripheral pulses, normal rate, regular rhythm, no gallop/murmur, no JVD Respiratory/Chest: chest wall non-tender, lungs clear, normal breath sounds, no respiratory distress, no accessory muscle use Abdomen: normal bowel sounds, non tender, soft, no organomegaly, no mass Extremities: normal range of motion, non-tender Neurologic: clinical rehabilitation liaison II-XII grossly normal, no motor/sensory deficits Skin: normal pigmentation, warm/dry Laboratory Tests Test 02/24/18 17:45 02/25/18 05:00 Troponin I 0.000 ng/mL (0.000-0.056) White Blood Count 7.9 K/UL (4.8-10.8) Red Blood Count 3.90 M/UL (4.70-6.10) L Hemoglobin 12.4 G/DL (14.2-18.0) L Hematocrit 36.6 % (42.0-52.0) L Mean Corpuscular Volume 94 FL (80-99) Mean Corpuscular Hemoglobin 31.9 PG (27.0-31.0) H Mean Corpuscular Hemoglobin Concent 34.0 G/DL (32.0-36.0) Red Cell Distribution Width 11.6 % (11.6-14.8) Platelet Count 187 K/UL (150-450) Mean Platelet Volume 11.1 FL (6.5-10.1) H Neutrophils (%) (Auto) 63.6 % (45.0-75.0) Lymphocytes (%) (Auto) 26.3 % (20.0-45.0) Monocytes (%) (Auto) 4.9 % (1.0-10.0) Eosinophils (%) (Auto) 4.0 % (0.0-3.0) H Basophils (%) (Auto) 1.3 % (0.0-2.0) Sodium Level 140 MMOL/L (136-145) Potassium Level 3.9 MMOL/L (3.5-5.1) Chloride Level 105 MMOL/L (98-107) Carbon Dioxide Level 28 MMOL/L (21-32) Anion Gap 7 mmol/L (5-15) Blood Urea Nitrogen 12 mg/dL (7-18) Creatinine 1.1 MG/DL (0.55-1.30) Estimat Glomerular Filtration Rate > 60 mL/min (>60) Glucose Level 167 MG/DL (74-106) #H Calcium Level 8.5 MG/DL (8.5-10.1) Total Bilirubin 0.5 MG/DL (0.2-1.0) Gamma Glutamyl Transpeptidase 180 U/L (5-85) H Aspartate Amino Transf (AST/SGOT) 36 U/L (15-37) Alanine Aminotransferase (ALT/SGPT) 78 U/L (12-78) Alkaline Phosphatase 84 U/L (46-116) Total Protein 7.5 G/DL (6.4-8.2) Albumin 3.4 G/DL (3.4-5.0) Globulin 4.1 g/dL Albumin/Globulin Ratio 0.8 (1.0-2.7) L Triglycerides Level 236 MG/DL (30-150) H Cholesterol Level 142 MG/DL (< 200) LDL Cholesterol 75 mg/dL (<100) HDL Cholesterol 36 MG/DL (40-60) L Cholesterol/HDL Ratio 3.9 (3.3-4.4) Hepatitis A IgM Antibody Pending Hepatitis B Surface Antigen Pending Hepatitis B Core IgM Antibody Pending Hepatitis C Antibody Pending Intake and Output 02/24/18 02/25/18 19:00 07:00 Intake Total 520 ml 300 ml Output Total 800 ml 550 ml Balance -280 ml -250 ml Intake Oral 520 ml 300 ml Output Urine Total 800 ml 550 ml Assessment/Plan Problem List: (1) Hypercholesteremia (2) Chest pain Assessment & Plan: See cardiology note. Await cardiolite stress test. (3) CAD (coronary artery disease) (4) DM (diabetes mellitus) Assessment & Plan: Continue novolog sliding scale. (5) HTN (hypertension) Assessment & Plan: Continue lisinopril and norvasc (6) Asthma Status: not improved Bennett Jenkins MD Feb 25, 2018 13:35
[2018-02-25 16:00] VITALS: BP 148/73
--- NOTE | 2018-02-25 16:24 | Consultation ---
History of Present Illness General Date patient seen: Feb 25, 2018 Time patient seen: 16:17 Referring physician: dr Ortez Reason for Consultation: SOB/pulm consult Present Illness HPI 62 year old Pt admitted to ER for shortness of breath and chest pain that occurred for x1 hour earlier on 02/23/2018. He received 4mg Morphine IVP, 324mg aspirin, 1 inch NITROBID ointment, and 2g magnesium in ER. He has a hx of HTN, DM, CAD, pMI. Troponin negative, EKG no ischemia. CXR clear. Previous angiogram but no PCI/Stents. Vitals stable. Chest pain is described as substernal. There is no radiation to the jaw or to the arm. It has been on and off. The pain is sharp and burning in nature. Allergies: Coded Allergies: No Known Allergies (Unverified , 02/27/15) Medication History Scheduled Albuterol Sulfate (Ventolin Hfa), 1 PUFF INH EVERY 6 HOURS, (Reported) Albuterol Sulfate* (Albuterol Sulfate Hhn*), 2.5 MG HHN Q6HRT Amlodipine Besylate (Norvasc), 10 MG ORAL DAILY, (Reported) Aspirin* (Aspir-Low*), 81 MG ORAL DAILY, (Reported) Atorvastatin (Lipitor), 40 MG ORAL BEDTIME, (Reported) Baclofen* (Baclofen*), 10 MG ORAL THREE TIMES A DAY, (Reported) Gabapentin* (Gabapentin*), 800 MG ORAL THREE TIMES A DAY, (Reported) Glipizide* (Glipizide*), 5 MG ORAL BIDAC, (Reported) Lidocaine HCL 2% Jelly* (Lidocaine Jelly 2%*), 5 ML TOPIC DAILY, (Reported) Lisinopril (Lisinopril*), 10 MG ORAL DAILY, (Reported) Metformin Hcl* (Metformin Hcl*), 500 MG ORAL TWICE A DAY, (Reported) Scheduled PRN Acetaminophen* (Tylenol Extra Strength*), 500 MG ORAL Q6H PRN for Mild Pain/ Temp > 100.5, (Reported) Diphenhydramine HCl (Benadryl), 25 MG PO BID PRN for Itching, (Reported) Hydrocodone Bit/Acetaminophen 10-325* ([place] 10-325*), 1 TAB ORAL Q6H PRN for For Pain, (Reported) Miscellaneous Medications Famotidine (Pepcid Ac), 20 MG PO, (Reported) Discontinued Medications Amlodipine Besylate (Norvasc), 5 MG ORAL DAILY Discontinued Reason: Medication dose changed Atorvastatin Calcium* (Lipitor*), 80 MG ORAL BEDTIME, (Reported) Discontinued Reason: Medication dose changed Clopidogrel Bisulfate* (Plavix*), 75 MG ORAL DAILY Discontinued Reason: Pt stopped taking med Gabapentin* (Gabapentin*), 300 MG ORAL THREE TIMES A DAY, (Reported) Discontinued Reason: Medication dose changed Hydrocodone Bit/Acetaminophen 5-325* ([place] 5-325*), 1 TAB ORAL Q6H PRN for For Pain Discontinued Reason: Medication dose changed Levetiracetam (Keppra), 500 MG ORAL EVERY 12 HOURS Discontinued Reason: Pt stopped taking med Lisinopril (Lisinopril*), 20 MG ORAL DAILY, (Reported) Discontinued Reason: Medication dose changed Metformin Hcl* (Metformin Hcl*), 1,000 MG ORAL DAILY, (Reported) Discontinued Reason: Medication dose changed Metoprolol Tartrate* (Metoprolol Tartrate*), 12.5 MG ORAL BID, (Reported) Discontinued Reason: Pt stopped taking med Omeprazole (Omeprazole), 20 MG ORAL DAILY, (Reported) Discontinued Reason: Pt stopped taking med Simethicone* (Simethicone*), 80 MG ORAL Q8H PRN for Gas, (Reported) Discontinued Reason: Pt stopped taking med Patient History Healthcare decision maker Resuscitation status Full Code Advanced Directive on File No Physical Exam General Appearance: no apparent distress, alert Lines, tubes and drains: peripheral HEENT: normocephalic, atraumatic Neck: non-tender, normal alignment, supple Respiratory/Chest: chest wall non-tender, lungs clear Cardiovascular/Chest: normal peripheral pulses, normal rate, regular rhythm Abdomen: normal bowel sounds, non tender Extremities: normal range of motion, non-tender Skin Exam: normal pigmentation Neurologic: tar heater II-XII grossly normal Last 24 Hour Vital Signs Date Time Temp Pulse Resp B/P (MAP) Pulse Ox O2 Delivery O2 Flow Rate FiO2 02/25/18 16:00 97.7 85 22 148/73 (98) 97 97.7 02/25/18 12:12 126/72 02/25/18 12:00 97.7 84 20 126/72 (90) 99 97.7 02/25/18 11:55 84 02/25/18 09:16 78 137/63 02/25/18 09:16 137/63 02/25/18 08:31 Room Air 02/25/18 08:25 78 18 Room Air 21 02/25/18 08:00 97.6 78 19 137/63 (87) 97 97.6 02/25/18 07:57 87 02/25/18 06:17 143/77 02/25/18 04:00 97.6 71 22 143/77 (99) 95 97.6 02/25/18 04:00 88 02/25/18 00:00 98.1 87 20 139/75 (96) 95 98.1 02/24/18 21:00 Room Air 02/24/18 20:52 136/71 02/24/18 20:00 97.8 72 22 141/75 (97) 97 97.8 02/24/18 20:00 73 Intake and Output 02/24/18 02/25/18 19:00 07:00 Intake Total 520 ml 300 ml Output Total 800 ml 550 ml Balance -280 ml -250 ml Intake Oral 520 ml 300 ml Output Urine Total 800 ml 550 ml Laboratory Tests Test 02/24/18 17:45 02/25/18 05:00 Troponin I 0.000 ng/mL (0.000-0.056) White Blood Count 7.9 K/UL (4.8-10.8) Red Blood Count 3.90 M/UL (4.70-6.10) L Hemoglobin 12.4 G/DL (14.2-18.0) L Hematocrit 36.6 % (42.0-52.0) L Mean Corpuscular Volume 94 FL (80-99) Mean Corpuscular Hemoglobin 31.9 PG (27.0-31.0) H Mean Corpuscular Hemoglobin Concent 34.0 G/DL (32.0-36.0) Red Cell Distribution Width 11.6 % (11.6-14.8) Platelet Count 187 K/UL (150-450) Mean Platelet Volume 11.1 FL (6.5-10.1) H Neutrophils (%) (Auto) 63.6 % (45.0-75.0) Lymphocytes (%) (Auto) 26.3 % (20.0-45.0) Monocytes (%) (Auto) 4.9 % (1.0-10.0) Eosinophils (%) (Auto) 4.0 % (0.0-3.0) H Basophils (%) (Auto) 1.3 % (0.0-2.0) Sodium Level 140 MMOL/L (136-145) Potassium Level 3.9 MMOL/L (3.5-5.1) Chloride Level 105 MMOL/L (98-107) Carbon Dioxide Level 28 MMOL/L (21-32) Anion Gap 7 mmol/L (5-15) Blood Urea Nitrogen 12 mg/dL (7-18) Creatinine 1.1 MG/DL (0.55-1.30) Estimat Glomerular Filtration Rate > 60 mL/min (>60) Glucose Level 167 MG/DL (74-106) #H Calcium Level 8.5 MG/DL (8.5-10.1) Total Bilirubin 0.5 MG/DL (0.2-1.0) Gamma Glutamyl Transpeptidase 180 U/L (5-85) H Aspartate Amino Transf (AST/SGOT) 36 U/L (15-37) Alanine Aminotransferase (ALT/SGPT) 78 U/L (12-78) Alkaline Phosphatase 84 U/L (46-116) Total Protein 7.5 G/DL (6.4-8.2) Albumin 3.4 G/DL (3.4-5.0) Globulin 4.1 g/dL Albumin/Globulin Ratio 0.8 (1.0-2.7) L Triglycerides Level 236 MG/DL (30-150) H Cholesterol Level 142 MG/DL (< 200) LDL Cholesterol 75 mg/dL (<100) HDL Cholesterol 36 MG/DL (40-60) L Cholesterol/HDL Ratio 3.9 (3.3-4.4) Hepatitis A IgM Antibody Pending Hepatitis B Surface Antigen Pending Hepatitis B Core IgM Antibody Pending Hepatitis C Antibody Pending Height (Feet): 5 Height (Inches): 10.00 Weight (Pounds): 260 Medications Current Medications Medications (Trade) Dose Ordered Sig/Flex Route PRN Reason Start Time Stop Time Status Last Admin Dose Admin Acetaminophen (Tylenol) 650 mg Q6H PRN ORAL Mild Pain/Temp > 100.5 02/24/18 03:15 03/26/18 03:14 Acetaminophen/ Hydrocodone Bitart ([place] 10/325) 1 tab Q6HR PRN ORAL For Pain 02/24/18 03:15 03/03/18 03:14 02/24/18 06:42 Albuterol/ Ipratropium (Albuterol/ Ipratropium) 3 ml Q4H PRN HHN Shortness of Breath 02/24/18 10:45 03/01/18 10:44 Amlodipine Besylate (Norvasc) 10 mg DAILY ORAL 02/24/18 09:00 03/26/18 08:59 02/25/18 09:16 Aspirin (ASA) 81 mg DAILY ORAL 02/24/18 09:00 03/26/18 08:59 02/25/18 09:16 Atorvastatin Calcium (Lipitor) 40 mg BEDTIME ORAL 02/24/18 21:00 03/26/18 20:59 02/24/18 20:51 Baclofen (Lioresal) 10 mg THREE TIMES A DAY PRN ORAL Muscle Spasm 02/24/18 03:15 03/26/18 03:14 02/25/18 14:10 Dextrose (Dextrose 50%) 25 ml STAT PRN IV Hypoglycemia 02/24/18 03:15 03/26/18 03:14 Dextrose (Dextrose 50%) 50 ml STAT PRN IV Hypoglycemia 02/24/18 03:15 03/26/18 03:14 Diphenhydramine HCl (Benadryl) 25 mg BID PRN ORAL Itching 02/24/18 03:15 03/26/18 03:14 Famotidine (Pepcid) 20 mg DAILY ORAL 02/24/18 09:00 03/26/18 08:59 02/25/18 09:16 Gabapentin (Neurontin) 800 mg THREE TIMES A DAY ORAL 02/24/18 09:00 03/26/18 08:59 02/25/18 12:12 Glipizide (Glucotrol) 5 mg BIAC ORAL 02/24/18 06:30 03/26/18 06:29 02/25/18 06:16 Heparin Sodium (Porcine) (Heparin 5000 units/ml) 5,000 units EVERY 8 HOURS SUBQ 02/24/18 06:00 03/26/18 05:59 8/19/18 14:18 Insulin Aspart (NovoLOG) BEFORE MEALS AND HS SUBQ 02/24/18 06:30 03/26/18 06:29 02/25/18 12:17 Lidocaine (Xylocaine 5% cream) 1 applic PRN PRN TOPIC Pain Scale (3-5) 02/24/18 03:15 03/26/18 03:14 Lisinopril (Zestril) 10 mg DAILY ORAL 02/24/18 09:00 03/26/18 08:59 02/25/18 09:16 Metformin HCl (Glucophage) 500 mg BID ORAL 02/24/18 09:00 03/26/18 08:59 02/25/18 09:15 Morphine Sulfate (Morphine Sulfate) 2 mg Q4H PRN IVP For Pain 02/24/18 18:00 03/03/18 17:59 Nitroglycerin (Nitro-Bid) 1 inch TID@0600,1200,1800 TOPIC 02/24/18 19:00 03/26/18 18:59 02/25/18 12:12 Ondansetron HCl (Zofran) 4 mg Q4HR PRN IVP Nausea & Vomiting 02/24/18 03:15 03/26/18 03:14 Regadenoson (Lexiscan) 0.4 mg ONCE PRN IV STRESS TEST 02/24/18 18:15 02/26/18 23:59 Assessment/Plan Status: stable Assessment/Plan Assessment (1) Hypercholesteremia (2) Chest pain (3) CAD (coronary artery disease) (4) DM (diabetes mellitus) (5) HTN (hypertension) (6) Asthma Plan: Echo reviewed, preserved LV function diastolic dysfunction, no wall motion abnormalities Aspirin Nitro SL prn Statin Serial EKG/Troponin Cardiolite in AM Continue blood pressure medications hold BB for stress test GI cocktail Outpatient endoscopy Evaluate for H pylori Power Tran M.D. Feb 25, 2018 16:24
[2018-02-25] MEDS: Morphine Sulfate 2mg/ml Inj(IV/IM USE ONLY) IVP PRN (20:27)
[2018-02-25 21:00] VITALS: BP 152/74
[2018-02-26] VITALS (7 sets, daily range): BP systolic 104–152; BP diastolic 60–88
[2018-02-26] MEDS: Heparin 5000 units/ml inj SUBQ SCH ×3 (06:05→21:11)
[2018-02-26] MEDS: NovoLOG Insulin Flexpen SUBQ SCH ×4 (06:30→21:10)
[2018-02-26] MEDS: GlipiZIDE 5mg tab ORAL SCH ×2 (06:30→17:28)
[2018-02-26] MEDS: Nitroglycerin 2% oint pkt TOPIC SCH ×3 (06:46→17:28)
[2018-02-26 07:29] LABS: ANION GAP 6 mmol/L (5-15); BLOOD UREA NITROGEN 12 mg/dL (7-18); CALCIUM 8.7 MG/DL (8.5-10.1); CARBON DIOXIDE 30 MMOL/L (21-32); CHLORIDE 105 MMOL/L (98-107); CREATININE 1.1 MG/DL (0.55-1.30); POTASSIUM 3.8 MMOL/L (3.5-5.1); SODIUM 141 MMOL/L (136-145)
[2018-02-26 07:36] LABS: EOSINOPHILS % (AUTO) 3.6 % (0.0-3.0); HEMATOCRIT 34.9 % (42.0-52.0); HEMOGLOBIN 12.2 G/DL (14.2-18.0); LYMPHOCYTES % (AUTO) 31.9 % (20.0-45.0); MEAN CORPUSCULAR VOLUME 93 FL (80-99); NEUTROPHILS % (AUTO) 55.6 % (45.0-75.0); PLATELET COUNT 177 K/UL (150-450); RED BLOOD COUNT 3.75 M/UL (4.70-6.10); RED CELL DISTRIBUTION WIDTH 11.2 % (11.6-14.8); WHITE BLOOD COUNT 5.6 K/UL (4.8-10.8)
[2018-02-26] MEDS: Lisinopril 10mg tab ORAL SCH (08:13)
[2018-02-26] MEDS: Aspirin Baby 81mg ORAL SCH (08:13)
[2018-02-26] MEDS: metFORMIN 500mg tab ORAL SCH ×2 (08:13→17:27)
[2018-02-26] MEDS: Morphine Sulfate 2mg/ml Inj(IV/IM USE ONLY) IVP PRN (08:15)
--- NOTE | 2018-02-26 10:29 | Diagnostic Imaging Report ---
Indication: Shortness of breath Technique: One view of the chest Comparison: none Findings: Lungs and pleural spaces are clear. Heart size is normal Impression: No acute process
--- NOTE | 2018-02-26 10:32 | Pulmonology Progress Note ---
Assessment/Plan Problems: (1) ACS (acute coronary syndrome) (2) Costochondritis (3) LENIN (obstructive sleep apnea) (4) Asthma (5) CAD (coronary artery disease) (6) HTN (hypertension) (7) DM (diabetes mellitus) Assessment/Plan symptomatic treatment stress test echo reviewed respiratory treatment titrate fio2 to sat of 92% Subjective ROS Limited/Unobtainable: No Constitutional: Reports: no symptoms HEENT: Repors: no symptoms Respiratory: Reports: no symptoms Allergies: Coded Allergies: No Known Allergies (Unverified , 02/27/15) Objective Last 24 Hour Vital Signs Date Time Temp Pulse Resp B/P (MAP) Pulse Ox O2 Delivery O2 Flow Rate FiO2 02/26/18 09:00 Room Air 02/26/18 08:25 82 18 Room Air 21 02/26/18 08:13 67 147/82 02/26/18 08:13 147/82 02/26/18 08:00 97.5 67 20 146/81 (102) 97 97.5 02/26/18 08:00 77 02/26/18 06:52 152/88 (109) 02/26/18 06:46 152/88 02/26/18 04:00 72 02/26/18 04:00 97.4 75 20 104/60 (75) 94 97.4 02/26/18 00:00 97.4 73 20 150/73 (98) 96 97.4 02/26/18 00:00 75 02/25/18 22:30 79 18 Room Air 21 02/25/18 21:00 97.9 85 20 152/74 (100) 94 97.9 02/25/18 21:00 Room Air 02/25/18 20:00 86 02/25/18 18:20 148/73 02/25/18 16:00 97.7 85 22 148/73 (98) 97 97.7 02/25/18 15:49 75 02/25/18 12:12 126/72 02/25/18 12:00 97.7 84 20 126/72 (90) 99 97.7 02/25/18 11:55 84 Intake and Output 02/25/18 02/26/18 19:00 07:00 Intake Total 520 ml Output Total 600 ml 1000 ml Balance -80 ml -1000 ml Intake Oral 520 ml Output Urine Total 600 ml 1000 ml # Voids 3 General Appearance: WD/WN HEENT: normocephalic, atraumatic Respiratory/Chest: chest wall non-tender, lungs clear, normal breath sounds Cardiovascular: normal peripheral pulses, normal rate Abdomen: normal bowel sounds, soft, non tender Extremities: no clubbing 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 Laboratory Tests 02/26/18 06:30: White Blood Count 5.6, Red Blood Count 3.75L, Hemoglobin 12.2L, Hematocrit 34.9L , Mean Corpuscular Volume 93, Mean Corpuscular Hemoglobin 32.4H, Mean Corpuscular Hemoglobin Concent 34.8, Red Cell Distribution Width 11.2L, Platelet Count 177, Mean Platelet Volume 11.1H, Neutrophils (%) (Auto) 55.6, Lymphocytes (%) (Auto) 31.9, Monocytes (%) (Auto) 8.0, Eosinophils (%) (Auto) 3.6H, Basophils (%) (Auto) 1.0, Sodium Level 141, Potassium Level 3.8, Chloride Level 105, Carbon Dioxide Level 30, Anion Gap 6, Blood Urea Nitrogen 12, Creatinine 1.1, Estimat Glomerular Filtration Rate > 60, Glucose Level 176H, Calcium Level 8.7 Current Medications Medications (Trade) Dose Ordered Sig/Flex Route PRN Reason Start Time Stop Time Status Last Admin Dose Admin Acetaminophen (Tylenol) 650 mg Q6H PRN ORAL Mild Pain/Temp > 100.5 02/24/18 03:15 03/26/18 03:14 Acetaminophen/ Hydrocodone Bitart ([place] 10/325) 1 tab Q6HR PRN ORAL For Pain 02/24/18 03:15 03/03/18 03:14 02/24/18 06:42 Albuterol/ Ipratropium (Albuterol/ Ipratropium) 3 ml Q4H PRN HHN Shortness of Breath 02/24/18 10:45 03/01/18 10:44 Amlodipine Besylate (Norvasc) 10 mg DAILY ORAL 02/24/18 09:00 03/26/18 08:59 02/26/18 08:13 Aspirin (ASA) 81 mg DAILY ORAL 02/24/18 09:00 03/26/18 08:59 02/26/18 08:13 Atorvastatin Calcium (Lipitor) 40 mg BEDTIME ORAL 02/24/18 21:00 03/26/18 20:59 02/25/18 22:03 Baclofen (Lioresal) 10 mg THREE TIMES A DAY PRN ORAL Muscle Spasm 02/24/18 03:15 03/26/18 03:14 02/25/18 14:10 Dextrose (Dextrose 50%) 25 ml STAT PRN IV Hypoglycemia 02/24/18 03:15 03/26/18 03:14 Dextrose (Dextrose 50%) 50 ml STAT PRN IV Hypoglycemia 02/24/18 03:15 03/26/18 03:14 Diphenhydramine HCl (Benadryl) 25 mg BID PRN ORAL Itching 02/24/18 03:15 03/26/18 03:14 Famotidine (Pepcid) 20 mg DAILY ORAL 02/24/18 09:00 03/26/18 08:59 02/26/18 08:13 Gabapentin (Neurontin) 800 mg THREE TIMES A DAY ORAL 02/24/18 09:00 03/26/18 08:59 02/26/18 08:14 Glipizide (Glucotrol) 5 mg BIAC ORAL 02/24/18 06:30 03/26/18 06:29 02/25/18 18:19 Heparin Sodium (Porcine) (Heparin 5000 units/ml) 5,000 units EVERY 8 HOURS SUBQ 02/24/18 06:00 03/26/18 05:59 02/26/18 06:05 Insulin Aspart (NovoLOG) BEFORE MEALS AND HS SUBQ 02/24/18 06:30 03/26/18 06:29 02/25/18 22:05 Lidocaine (Xylocaine 5% cream) 1 applic PRN PRN TOPIC Pain Scale (3-5) 02/24/18 03:15 03/26/18 03:14 Lisinopril (Zestril) 10 mg DAILY ORAL 02/24/18 09:00 03/26/18 08:59 02/26/18 08:13 Metformin HCl (Glucophage) 500 mg BID ORAL 02/24/18 09:00 03/26/18 08:59 02/26/18 08:13 Morphine Sulfate (Morphine Sulfate) 2 mg Q4H PRN IVP For Pain 02/24/18 18:00 03/03/18 17:59 02/26/18 08:15 Nitroglycerin (Nitro-Bid) 1 inch TID@0600,1200,1800 TOPIC 02/24/18 19:00 03/26/18 18:59 02/26/18 06:46 Ondansetron HCl (Zofran) 4 mg Q4HR PRN IVP Nausea & Vomiting 02/24/18 03:15 03/26/18 03:14 Regadenoson (Lexiscan) 0.4 mg ONCE PRN IV STRESS TEST 02/24/18 18:15 02/26/18 23:59 Jennifer Hughes MD Feb 26, 2018 10:32
--- NOTE | 2018-02-26 11:35 | Consultation ---
History of Present Illness General Date patient seen: Feb 26, 2018 Referring physician: dr Ortez Reason for Consultation: SOB/pulm consult Present Illness HPI 62-year-old male with history of coronary artery disease, who presents with chief complaint of chest pain. The pt has low energy and anxiety Allergies: Coded Allergies: No Known Allergies (Unverified , 02/27/15) Medication History Scheduled Albuterol Sulfate (Ventolin Hfa), 1 PUFF INH EVERY 6 HOURS, (Reported) Albuterol Sulfate* (Albuterol Sulfate Hhn*), 2.5 MG HHN Q6HRT Amlodipine Besylate (Norvasc), 10 MG ORAL DAILY, (Reported) Aspirin* (Aspir-Low*), 81 MG ORAL DAILY, (Reported) Atorvastatin (Lipitor), 40 MG ORAL BEDTIME, (Reported) Baclofen* (Baclofen*), 10 MG ORAL THREE TIMES A DAY, (Reported) Gabapentin* (Gabapentin*), 800 MG ORAL THREE TIMES A DAY, (Reported) Glipizide* (Glipizide*), 5 MG ORAL BIDAC, (Reported) Lidocaine HCL 2% Jelly* (Lidocaine Jelly 2%*), 5 ML TOPIC DAILY, (Reported) Lisinopril (Lisinopril*), 10 MG ORAL DAILY, (Reported) Metformin Hcl* (Metformin Hcl*), 500 MG ORAL TWICE A DAY, (Reported) Scheduled PRN Acetaminophen* (Tylenol Extra Strength*), 500 MG ORAL Q6H PRN for Mild Pain/ Temp > 100.5, (Reported) Diphenhydramine HCl (Benadryl), 25 MG PO BID PRN for Itching, (Reported) Hydrocodone Bit/Acetaminophen 10-325* ([place] 10-325*), 1 TAB ORAL Q6H PRN for For Pain, (Reported) Miscellaneous Medications Famotidine (Pepcid Ac), 20 MG PO, (Reported) Discontinued Medications Amlodipine Besylate (Norvasc), 5 MG ORAL DAILY Discontinued Reason: Medication dose changed Atorvastatin Calcium* (Lipitor*), 80 MG ORAL BEDTIME, (Reported) Discontinued Reason: Medication dose changed Clopidogrel Bisulfate* (Plavix*), 75 MG ORAL DAILY Discontinued Reason: Pt stopped taking med Gabapentin* (Gabapentin*), 300 MG ORAL THREE TIMES A DAY, (Reported) Discontinued Reason: Medication dose changed Hydrocodone Bit/Acetaminophen 5-325* ([place] 5-325*), 1 TAB ORAL Q6H PRN for For Pain Discontinued Reason: Medication dose changed Levetiracetam (Keppra), 500 MG ORAL EVERY 12 HOURS Discontinued Reason: Pt stopped taking med Lisinopril (Lisinopril*), 20 MG ORAL DAILY, (Reported) Discontinued Reason: Medication dose changed Metformin Hcl* (Metformin Hcl*), 1,000 MG ORAL DAILY, (Reported) Discontinued Reason: Medication dose changed Metoprolol Tartrate* (Metoprolol Tartrate*), 12.5 MG ORAL BID, (Reported) Discontinued Reason: Pt stopped taking med Omeprazole (Omeprazole), 20 MG ORAL DAILY, (Reported) Discontinued Reason: Pt stopped taking med Simethicone* (Simethicone*), 80 MG ORAL Q8H PRN for Gas, (Reported) Discontinued Reason: Pt stopped taking med Patient History History Provided By: Patient, Medical Record, PMD Healthcare decision maker Resuscitation status Full Code Advanced Directive on File No Review of Systems Psychiatric: Reports: anxiety, depressed feelings Physical Exam General Appearance: no apparent distress, alert Neurologic: oriented x 3, responsive, depressed affect Last 24 Hour Vital Signs Date Time Temp Pulse Resp B/P (MAP) Pulse Ox O2 Delivery O2 Flow Rate FiO2 02/26/18 09:00 Room Air 02/26/18 08:25 82 18 Room Air 21 02/26/18 08:13 67 147/82 02/26/18 08:13 147/82 02/26/18 08:00 97.5 67 20 146/81 (102) 97 97.5 02/26/18 08:00 77 02/26/18 06:52 152/88 (109) 02/26/18 06:46 152/88 02/26/18 04:00 72 02/26/18 04:00 97.4 75 20 104/60 (75) 94 97.4 02/26/18 00:00 97.4 73 20 150/73 (98) 96 97.4 02/26/18 00:00 75 02/25/18 22:30 79 18 Room Air 21 02/25/18 21:00 97.9 85 20 152/74 (100) 94 97.9 8/19/18 21:00 Room Air 02/25/18 20:00 86 02/25/18 18:20 148/73 02/25/18 16:00 97.7 85 22 148/73 (98) 97 97.7 02/25/18 15:49 75 02/25/18 12:12 126/72 02/25/18 12:00 97.7 84 20 126/72 (90) 99 97.7 02/25/18 11:55 84 Intake and Output 02/25/18 02/26/18 19:00 07:00 Intake Total 520 ml Output Total 600 ml 1000 ml Balance -80 ml -1000 ml Intake Oral 520 ml Output Urine Total 600 ml 1000 ml # Voids 3 Laboratory Tests Test 02/26/18 06:30 White Blood Count 5.6 K/UL (4.8-10.8) Red Blood Count 3.75 M/UL (4.70-6.10) L Hemoglobin 12.2 G/DL (14.2-18.0) L Hematocrit 34.9 % (42.0-52.0) L Mean Corpuscular Volume 93 FL (80-99) Mean Corpuscular Hemoglobin 32.4 PG (27.0-31.0) H Mean Corpuscular Hemoglobin Concent 34.8 G/DL (32.0-36.0) Red Cell Distribution Width 11.2 % (11.6-14.8) L Platelet Count 177 K/UL (150-450) Mean Platelet Volume 11.1 FL (6.5-10.1) H Neutrophils (%) (Auto) 55.6 % (45.0-75.0) Lymphocytes (%) (Auto) 31.9 % (20.0-45.0) Monocytes (%) (Auto) 8.0 % (1.0-10.0) Eosinophils (%) (Auto) 3.6 % (0.0-3.0) H Basophils (%) (Auto) 1.0 % (0.0-2.0) Sodium Level 141 MMOL/L (136-145) Potassium Level 3.8 MMOL/L (3.5-5.1) Chloride Level 105 MMOL/L (98-107) Carbon Dioxide Level 30 MMOL/L (21-32) Anion Gap 6 mmol/L (5-15) Blood Urea Nitrogen 12 mg/dL (7-18) Creatinine 1.1 MG/DL (0.55-1.30) Estimat Glomerular Filtration Rate > 60 mL/min (>60) Glucose Level 176 MG/DL (74-106) H Calcium Level 8.7 MG/DL (8.5-10.1) Height (Feet): 5 Height (Inches): 10.00 Weight (Pounds): 260 Medications Current Medications Medications (Trade) Dose Ordered Sig/Flex Route PRN Reason Start Time Stop Time Status Last Admin Dose Admin Acetaminophen (Tylenol) 650 mg Q6H PRN ORAL Mild Pain/Temp > 100.5 02/24/18 03:15 03/26/18 03:14 Acetaminophen/ Hydrocodone Bitart ([place] 10/325) 1 tab Q6HR PRN ORAL For Pain 02/24/18 03:15 03/03/18 03:14 02/24/18 06:42 Albuterol/ Ipratropium (Albuterol/ Ipratropium) 3 ml Q4H PRN HHN Shortness of Breath 02/24/18 10:45 03/01/18 10:44 Amlodipine Besylate (Norvasc) 10 mg DAILY ORAL 02/24/18 09:00 03/26/18 08:59 02/26/18 08:13 Aspirin (ASA) 81 mg DAILY ORAL 02/24/18 09:00 03/26/18 08:59 02/26/18 08:13 Atorvastatin Calcium (Lipitor) 40 mg BEDTIME ORAL 02/24/18 21:00 03/26/18 20:59 02/25/18 22:03 Baclofen (Lioresal) 10 mg THREE TIMES A DAY PRN ORAL Muscle Spasm 02/24/18 03:15 03/26/18 03:14 02/25/18 14:10 Dextrose (Dextrose 50%) 25 ml STAT PRN IV Hypoglycemia 02/24/18 03:15 03/26/18 03:14 Dextrose (Dextrose 50%) 50 ml STAT PRN IV Hypoglycemia 02/24/18 03:15 03/26/18 03:14 Diphenhydramine HCl (Benadryl) 25 mg BID PRN ORAL Itching 02/24/18 03:15 03/26/18 03:14 Famotidine (Pepcid) 20 mg DAILY ORAL 02/24/18 09:00 03/26/18 08:59 02/26/18 08:13 Gabapentin (Neurontin) 800 mg THREE TIMES A DAY ORAL 02/24/18 09:00 03/26/18 08:59 02/26/18 08:14 Glipizide (Glucotrol) 5 mg BIAC ORAL 02/24/18 06:30 03/26/18 06:29 02/25/18 18:19 Heparin Sodium (Porcine) (Heparin 5000 units/ml) 5,000 units EVERY 8 HOURS SUBQ 02/24/18 06:00 03/26/18 05:59 02/26/18 06:05 Insulin Aspart (NovoLOG) BEFORE MEALS AND HS SUBQ 02/24/18 06:30 03/26/18 06:29 02/25/18 22:05 Lidocaine (Xylocaine 5% cream) 1 applic PRN PRN TOPIC Pain Scale (3-5) 02/24/18 03:15 03/26/18 03:14 Lisinopril (Zestril) 10 mg DAILY ORAL 02/24/18 09:00 03/26/18 08:59 02/26/18 08:13 Metformin HCl (Glucophage) 500 mg BID ORAL 02/24/18 09:00 03/26/18 08:59 02/26/18 08:13 Morphine Sulfate (Morphine Sulfate) 2 mg Q4H PRN IVP For Pain 02/24/18 18:00 03/03/18 17:59 02/26/18 08:15 Nitroglycerin (Nitro-Bid) 1 inch TID@0600,1200,1800 TOPIC 02/24/18 19:00 03/26/18 18:59 02/26/18 06:46 Ondansetron HCl (Zofran) 4 mg Q4HR PRN IVP Nausea & Vomiting 02/24/18 03:15 03/26/18 03:14 Regadenoson (Lexiscan) 0.4 mg ONCE PRN IV STRESS TEST 02/24/18 18:15 02/26/18 23:59 Assessment/Plan Assessment/Plan anxiety d/o -ativan prn -provided mandi/Nya Orantes MD Feb 26, 2018 11:35
--- NOTE | 2018-02-26 11:55 | Cardiology Progress Note ---
Assessment/Plan Status: stable Assessment/Plan Assessment (1) Hypercholesteremia (2) Chest pain (3) CAD (coronary artery disease) (4) DM (diabetes mellitus) (5) HTN (hypertension) (6) Asthma Plan: Echo reviewed, preserved LV function diastolic dysfunction, no wall motion abnormalities Aspirin Nitro SL prn Statin Serial EKG/Troponin Cardiolite in AM Continue blood pressure medications hold BB for stress test GI cocktail Outpatient endoscopy Evaluate for H pylori Subjective Cardiovascular: Reports: no symptoms Respiratory: Reports: no symptoms Gastrointestinal/Abdominal: Reports: no symptoms Genitourinary: Reports: no symptoms Subjective NO acute events, vitals stable, had chest pain last night that resolved with morphine, for stress test in AM Objective Last 24 Hour Vital Signs Date Time Temp Pulse Resp B/P (MAP) Pulse Ox O2 Delivery O2 Flow Rate FiO2 02/26/18 09:00 Room Air 02/26/18 08:25 82 18 Room Air 21 02/26/18 08:13 67 147/82 02/26/18 08:13 147/82 02/26/18 08:00 97.5 67 20 146/81 (102) 97 97.5 02/26/18 08:00 77 02/26/18 06:52 152/88 (109) 02/26/18 06:46 152/88 02/26/18 04:00 72 02/26/18 04:00 97.4 75 20 104/60 (75) 94 97.4 02/26/18 00:00 97.4 73 20 150/73 (98) 96 97.4 02/26/18 00:00 75 02/25/18 22:30 79 18 Room Air 21 02/25/18 21:00 97.9 85 20 152/74 (100) 94 97.9 02/25/18 21:00 Room Air 02/25/18 20:00 86 02/25/18 18:20 148/73 02/25/18 16:00 97.7 85 22 148/73 (98) 97 97.7 02/25/18 15:49 75 02/25/18 12:12 126/72 02/25/18 12:00 97.7 84 20 126/72 (90) 99 97.7 02/25/18 11:55 84 General Appearance: no apparent distress, alert EENT: PERRL/EOMI, normal ENT inspection Neck: non-tender, normal alignment Rhythm: NSR Cardiovascular: normal peripheral pulses, normal rate, regular rhythm Respiratory/Chest: chest wall non-tender, lungs clear Abdomen: normal bowel sounds, non tender Extremities: normal range of motion, non-tender 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, no motor/sensory deficits Intake and Output 02/25/18 02/26/18 19:00 07:00 Intake Total 520 ml Output Total 600 ml 1000 ml Balance -80 ml -1000 ml Intake Oral 520 ml Output Urine Total 600 ml 1000 ml # Voids 3 Laboratory Tests Test 02/26/18 06:30 White Blood Count 5.6 K/UL (4.8-10.8) Red Blood Count 3.75 M/UL (4.70-6.10) L Hemoglobin 12.2 G/DL (14.2-18.0) L Hematocrit 34.9 % (42.0-52.0) L Mean Corpuscular Volume 93 FL (80-99) Mean Corpuscular Hemoglobin 32.4 PG (27.0-31.0) H Mean Corpuscular Hemoglobin Concent 34.8 G/DL (32.0-36.0) Red Cell Distribution Width 11.2 % (11.6-14.8) L Platelet Count 177 K/UL (150-450) Mean Platelet Volume 11.1 FL (6.5-10.1) H Neutrophils (%) (Auto) 55.6 % (45.0-75.0) Lymphocytes (%) (Auto) 31.9 % (20.0-45.0) Monocytes (%) (Auto) 8.0 % (1.0-10.0) Eosinophils (%) (Auto) 3.6 % (0.0-3.0) H Basophils (%) (Auto) 1.0 % (0.0-2.0) Sodium Level 141 MMOL/L (136-145) Potassium Level 3.8 MMOL/L (3.5-5.1) Chloride Level 105 MMOL/L (98-107) Carbon Dioxide Level 30 MMOL/L (21-32) Anion Gap 6 mmol/L (5-15) Blood Urea Nitrogen 12 mg/dL (7-18) Creatinine 1.1 MG/DL (0.55-1.30) Estimat Glomerular Filtration Rate > 60 mL/min (>60) Glucose Level 176 MG/DL (74-106) H Calcium Level 8.7 MG/DL (8.5-10.1) Power Tran M.D. Feb 26, 2018 11:55
--- NOTE | 2018-02-26 19:20 | Internal Med Progress Note ---
Subjective Date of Service: Feb 26, 2018 Physician Name Bennett Jenkins Attending Physician Wade Ortez MD Current Medications Medications (Trade) Dose Ordered Sig/Flex Route PRN Reason Start Time Stop Time Status Last Admin Dose Admin Acetaminophen (Tylenol) 650 mg Q6H PRN ORAL Mild Pain/Temp > 100.5 02/24/18 03:15 03/26/18 03:14 Acetaminophen/ Hydrocodone Bitart ([place] 10/325) 1 tab Q6HR PRN ORAL For Pain 02/24/18 03:15 03/03/18 03:14 02/24/18 06:42 Albuterol/ Ipratropium (Albuterol/ Ipratropium) 3 ml Q4H PRN HHN Shortness of Breath 02/24/18 10:45 03/01/18 10:44 Amlodipine Besylate (Norvasc) 10 mg DAILY ORAL 02/24/18 09:00 03/26/18 08:59 02/26/18 08:13 Aspirin (ASA) 81 mg DAILY ORAL 02/24/18 09:00 03/26/18 08:59 02/26/18 08:13 Atorvastatin Calcium (Lipitor) 40 mg BEDTIME ORAL 02/24/18 21:00 03/26/18 20:59 02/25/18 22:03 Baclofen (Lioresal) 10 mg THREE TIMES A DAY PRN ORAL Muscle Spasm 02/24/18 03:15 03/26/18 03:14 02/26/18 12:32 Dextrose (Dextrose 50%) 25 ml STAT PRN IV Hypoglycemia 02/24/18 03:15 03/26/18 03:14 Dextrose (Dextrose 50%) 50 ml STAT PRN IV Hypoglycemia 02/24/18 03:15 03/26/18 03:14 Diphenhydramine HCl (Benadryl) 25 mg BID PRN ORAL Itching 02/24/18 03:15 03/26/18 03:14 Famotidine (Pepcid) 20 mg DAILY ORAL 02/24/18 09:00 03/26/18 08:59 02/26/18 08:13 Gabapentin (Neurontin) 800 mg THREE TIMES A DAY ORAL 02/24/18 09:00 03/26/18 08:59 02/26/18 17:28 Glipizide (Glucotrol) 5 mg BIAC ORAL 02/24/18 06:30 03/26/18 06:29 02/26/18 17:28 Heparin Sodium (Porcine) (Heparin 5000 units/ml) 5,000 units EVERY 8 HOURS SUBQ 02/24/18 06:00 03/26/18 05:59 02/26/18 06:05 Insulin Aspart (NovoLOG) BEFORE MEALS AND HS SUBQ 02/24/18 06:30 03/26/18 06:29 02/26/18 17:29 Lidocaine (Xylocaine 5% cream) 1 applic PRN PRN TOPIC Pain Scale (3-5) 02/24/18 03:15 03/26/18 03:14 Lisinopril (Zestril) 10 mg DAILY ORAL 02/24/18 09:00 03/26/18 08:59 02/26/18 08:13 Metformin HCl (Glucophage) 500 mg BID ORAL 02/24/18 09:00 03/26/18 08:59 02/26/18 17:27 Morphine Sulfate (Morphine Sulfate) 2 mg Q4H PRN IVP For Pain 02/24/18 18:00 03/03/18 17:59 02/26/18 08:15 Nitroglycerin (Nitro-Bid) 1 inch TID@0600,1200,1800 TOPIC 02/24/18 19:00 03/26/18 18:59 02/26/18 17:28 Ondansetron HCl (Zofran) 4 mg Q4HR PRN IVP Nausea & Vomiting 02/24/18 03:15 03/26/18 03:14 Regadenoson (Lexiscan) 0.4 mg ONCE PRN IV STRESS TEST 02/24/18 18:15 02/26/18 23:59 Allergies: Coded Allergies: No Known Allergies (Unverified , 02/27/15) ROS Limited/Unobtainable: No Constitutional: Reports: no symptoms HEENT: Reports: no symptoms Cardiovascular: Reports: chest pain Respiratory: Reports: no symptoms Gastrointestinal/Abdominal: Reports: no symptoms Genitourinary: Reports: no symptoms Neurologic/Psychiatric: Reports: no symptoms Subjective 62 YO M admitted with chest pain. Cover for Int Sánchez-Dr Ortez. Await cardiolite stress test result. Objective Last Vital Signs Date Time Temp Pulse Resp B/P (MAP) Pulse Ox O2 Delivery O2 Flow Rate FiO2 02/26/18 17:28 129/76 02/26/18 16:00 77 02/26/18 16:00 98.1 20 95 98.1 02/26/18 09:00 Room Air 02/26/18 08:25 21 Laboratory Tests Test 02/26/18 06:30 White Blood Count 5.6 K/UL (4.8-10.8) Red Blood Count 3.75 M/UL (4.70-6.10) L Hemoglobin 12.2 G/DL (14.2-18.0) L Hematocrit 34.9 % (42.0-52.0) L Mean Corpuscular Volume 93 FL (80-99) Mean Corpuscular Hemoglobin 32.4 PG (27.0-31.0) H Mean Corpuscular Hemoglobin Concent 34.8 G/DL (32.0-36.0) Red Cell Distribution Width 11.2 % (11.6-14.8) L Platelet Count 177 K/UL (150-450) Mean Platelet Volume 11.1 FL (6.5-10.1) H Neutrophils (%) (Auto) 55.6 % (45.0-75.0) Lymphocytes (%) (Auto) 31.9 % (20.0-45.0) Monocytes (%) (Auto) 8.0 % (1.0-10.0) Eosinophils (%) (Auto) 3.6 % (0.0-3.0) H Basophils (%) (Auto) 1.0 % (0.0-2.0) Sodium Level 141 MMOL/L (136-145) Potassium Level 3.8 MMOL/L (3.5-5.1) Chloride Level 105 MMOL/L (98-107) Carbon Dioxide Level 30 MMOL/L (21-32) Anion Gap 6 mmol/L (5-15) Blood Urea Nitrogen 12 mg/dL (7-18) Creatinine 1.1 MG/DL (0.55-1.30) Estimat Glomerular Filtration Rate > 60 mL/min (>60) Glucose Level 176 MG/DL (74-106) H Calcium Level 8.7 MG/DL (8.5-10.1) Intake and Output 02/25/18 02/26/18 19:00 07:00 Intake Total 520 ml Output Total 600 ml 1000 ml Balance -80 ml -1000 ml Intake Oral 520 ml Output Urine Total 600 ml 1000 ml # Voids 3 Objective General Appearance: WD/WN, no apparent distress, alert, obese EENT: PERRL/EOMI, normal ENT inspection Neck: non-tender, normal alignment, supple, normal inspection Cardiovascular: normal peripheral pulses, normal rate, regular rhythm, no gallop/murmur, no JVD Respiratory/Chest: chest wall non-tender, lungs clear, normal breath sounds, no respiratory distress, no accessory muscle use Abdomen: normal bowel sounds, non tender, soft, no organomegaly, no mass Extremities: normal range of motion, non-tender 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 Await cardiolite stress test result (3) CAD (coronary artery disease) (4) DM (diabetes mellitus) Assessment & Plan: Continue novolog sliding scale. (5) HTN (hypertension) Assessment & Plan: Continue lisinopril and norvasc (6) Asthma Status: stable Bennett Jenkins MD Feb 26, 2018 19:20
[2018-02-27] VITALS: BP 146/85
[2018-02-27 04:00] VITALS: BP 132/84
[2018-02-27] MEDS: Heparin 5000 units/ml inj SUBQ SCH ×2 (06:00→13:34)
[2018-02-27] MEDS: Nitroglycerin 2% oint pkt TOPIC SCH ×2 (06:00→12:11)
[2018-02-27 06:30] LABS: BASOPHILS % (AUTO) 1.4 % (0.0-2.0); EOSINOPHILS % (AUTO) 3.5 % (0.0-3.0); HEMATOCRIT 36.5 % (42.0-52.0); HEMOGLOBIN 12.3 G/DL (14.2-18.0); LYMPHOCYTES % (AUTO) 24.6 % (20.0-45.0); MEAN CORPUSCULAR VOLUME 93 FL (80-99); MONOCYTES % (AUTO) 5.7 % (1.0-10.0); NEUTROPHILS % (AUTO) 64.8 % (45.0-75.0); PLATELET COUNT 196 K/UL (150-450); RED BLOOD COUNT 3.93 M/UL (4.70-6.10); RED CELL DISTRIBUTION WIDTH 11.4 % (11.6-14.8); WHITE BLOOD COUNT 6.3 K/UL (4.8-10.8)
[2018-02-27] MEDS: GlipiZIDE 5mg tab ORAL SCH (06:40)
[2018-02-27 06:51] LABS: ANION GAP 6 mmol/L (5-15); BLOOD UREA NITROGEN 14 mg/dL (7-18); CALCIUM 8.6 MG/DL (8.5-10.1); CARBON DIOXIDE 30 MMOL/L (21-32); CHLORIDE 104 MMOL/L (98-107); CREATININE 1.2 MG/DL (0.55-1.30); SODIUM 140 MMOL/L (136-145)
[2018-02-27] MEDS: NovoLOG Insulin Flexpen SUBQ SCH ×2 (06:53→12:12)
[2018-02-27 08:00] VITALS: BP 136/88
--- NOTE | 2018-02-27 08:25 | Diagnostic Imaging Report ---
Indications: Chest pain Technique: Single day single isotope protocol utilized. Initially, resting images obtained using IV administration 10.9 millicuries 99M technetium Myoview. Subsequently, patient underwent lexiscan stress testing. See cardiology report for details. During Lexiscan infusion, IV administration 32 mCi 99 M technetium Myoview. SPECT and planar images obtained. SPECT images gated to 8 phases of the cardiac cycle were also obtained, and reformatted into cine images for evaluation of ejection fraction. Comparison: 03/03/2015 Findings: Presence or absence of symptoms during infusion is not described on the cardiology report. Per cardiology report, resting EKG demonstrates normal sinus rhythm. Presence or absence of ST changes is not described. On imaging, no fixed nor reversible perfusion defects are demonstrated. When compared to prior exam, no significant interim change. Apparent fixed inferior wall perfusion is less striking than on the prior exam, probably on the basis of diaphragmatic attenuation on both current and the previous studies. Normal left ventricular chamber size. Calculated post stress ejection fraction 71%. No focal wall motion abnormality demonstrated. Impression: Nonischemic clinical response to pharmacologic stress, per cardiology report Nonischemic electrocardiographic response to pharmacologic stress, per cardiology report No imaging findings to suggest ischemia, at level of stress achieved. Calculated post stress ejection fraction greater than 70%
[2018-02-27] MEDS: Aspirin Baby 81mg ORAL SCH (08:38)
[2018-02-27] MEDS: metFORMIN 500mg tab ORAL SCH (08:38)
[2018-02-27] MEDS: Lisinopril 10mg tab ORAL SCH (08:38)
[2018-02-27] MEDS: HYDROcodone/Acetamin 10/325 tab ORAL PRN (08:45)
--- NOTE | 2018-02-27 10:45 | Physician Query ---
--------- THIS DOCUMENT IS A PERMANENT PART OF THE MEDICAL RECORD --------- PLEASE COMPLETE THE DOCUMENT BEFORE SIGNING Dear Dr. Tran Date: 02/27/2018 Fence Installer/CDS' Name: Nikki Hernandez Fence Installer/CDS Phone#: [phone] Exercise your independent professional judgment when responding to query. Questions asked do not imply particular answer is desired or expected. We greatly appreciate your clarification on this issue. Clinical Documentation States: "Chest pain" documented in consult and progress notes. Consult and progress notes plan includes GI cocktail, outpatient endoscopy, evaluate for H. pylori. Clinical Findings Show: Troponin = Negative ECHO = LV diastolic dysfunction. Please document the suspected etiology of Chest Pain: a.Type: [] Cardiac [] Non-cardiac [] Unspecified b.Etiology - cardiac [] Aortic dissection []Mitral valve prolapsed [] Acute myocardial infarction []Spasm of coronary arteries [] Coronary Artery Disease []Pericarditis c.Etiology - non-cardiac [] Anxiety []Pleurisy [] Cancer []Pneumonia, type [] Costochondritis []Pneumothorax [] GERD/Esophagitis []Pulmonary embolism [] Unable to determine []Other: Condition Present on Admission: [] Yes [] No []Clinically Undeterminable Please also document in your Progress Notes and/or Discharge Summary and indicate if the condition was present on admission. CARROLLD
[2018-02-27 12:00] VITALS: BP 134/90
--- NOTE | 2018-02-27 12:13 | Pulmonology Progress Note ---
Assessment/Plan Problems: (1) ACS (acute coronary syndrome) (2) Costochondritis (3) LENIN (obstructive sleep apnea) (4) Asthma (5) CAD (coronary artery disease) (6) HTN (hypertension) (7) DM (diabetes mellitus) Assessment/Plan symptomatic treatment stress test noted, was negative echo reviewed sliding scale respiratory treatment titrate fio2 to sat of 92% dc home Subjective ROS Limited/Unobtainable: No Constitutional: Reports: no symptoms HEENT: Repors: no symptoms Respiratory: Reports: no symptoms Allergies: Coded Allergies: No Known Allergies (Unverified , 02/27/15) Objective Last 24 Hour Vital Signs Date Time Temp Pulse Resp B/P (MAP) Pulse Ox O2 Delivery O2 Flow Rate FiO2 02/27/18 10:14 79 18 Room Air 21 02/27/18 09:00 Room Air 02/27/18 08:38 136/88 02/27/18 08:37 94 136/88 02/27/18 08:00 97.1 94 20 136/88 (104) 95 97.1 02/27/18 04:00 98.6 77 24 132/84 (100) 97 98.6 02/27/18 04:00 77 02/27/18 00:00 97.9 80 20 146/85 (105) 97 97.9 02/27/18 00:00 95 02/26/18 22:06 86 20 Room Air 21 02/26/18 21:00 Room Air 02/26/18 20:00 98.7 93 20 132/82 (99) 96 98.7 02/26/18 20:00 84 02/26/18 17:28 129/76 02/26/18 16:00 77 02/26/18 16:00 98.1 96 20 128/79 (95) 95 98.1 02/26/18 12:25 129/76 Intake and Output 02/26/18 02/27/18 19:00 07:00 Intake Total 240 ml Output Total 400 ml Balance -160 ml Intake Oral 240 ml Output Urine Total 400 ml # Voids 2 2 General Appearance: WD/WN HEENT: normocephalic, atraumatic Respiratory/Chest: chest wall non-tender, no respiratory distress Cardiovascular: normal peripheral pulses, normal rate Genitourinary: normal external genitalia Extremities: no cyanosis Skin: no rash 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 Lymphatic: no neck adenopathy Laboratory Tests 02/27/18 05:50: White Blood Count 6.3, Red Blood Count 3.93L, Hemoglobin 12.3L, Hematocrit 36.5L , Mean Corpuscular Volume 93, Mean Corpuscular Hemoglobin 31.4H, Mean Corpuscular Hemoglobin Concent 33.8, Red Cell Distribution Width 11.4L, Platelet Count 196, Mean Platelet Volume 10.6H, Neutrophils (%) (Auto) 64.8, Lymphocytes (%) (Auto) 24.6, Monocytes (%) (Auto) 5.7, Eosinophils (%) (Auto) 3.5H, Basophils (%) (Auto) 1.4, Sodium Level 140, Potassium Level 4.0, Chloride Level 104, Carbon Dioxide Level 30, Anion Gap 6, Blood Urea Nitrogen 14, Creatinine 1.2, Estimat Glomerular Filtration Rate > 60, Glucose Level 170H, Calcium Level 8.6, Troponin I 0.000 Current Medications Medications (Trade) Dose Ordered Sig/Flex Route PRN Reason Start Time Stop Time Status Last Admin Dose Admin Acetaminophen (Tylenol) 650 mg Q6H PRN ORAL Mild Pain/Temp > 100.5 02/24/18 03:15 03/26/18 03:14 Acetaminophen/ Hydrocodone Bitart ([place] 10/325) 1 tab Q6HR PRN ORAL For Pain 02/24/18 03:15 03/03/18 03:14 02/27/18 08:45 Albuterol/ Ipratropium (Albuterol/ Ipratropium) 3 ml Q4H PRN HHN Shortness of Breath 02/24/18 10:45 03/01/18 10:44 Amlodipine Besylate (Norvasc) 10 mg DAILY ORAL 02/24/18 09:00 03/26/18 08:59 02/27/18 08:37 Aspirin (ASA) 81 mg DAILY ORAL 02/24/18 09:00 03/26/18 08:59 02/27/18 08:38 Atorvastatin Calcium (Lipitor) 40 mg BEDTIME ORAL 02/27/18 21:00 03/26/18 20:59 Baclofen (Lioresal) 10 mg THREE TIMES A DAY PRN ORAL Muscle Spasm 02/24/18 03:15 03/26/18 03:14 02/26/18 12:32 Dextrose (Dextrose 50%) 25 ml STAT PRN IV Hypoglycemia 02/24/18 03:15 03/26/18 03:14 Dextrose (Dextrose 50%) 50 ml STAT PRN IV Hypoglycemia 02/24/18 03:15 03/26/18 03:14 Diphenhydramine HCl (Benadryl) 25 mg BID PRN ORAL Itching 02/24/18 03:15 03/26/18 03:14 Famotidine (Pepcid) 20 mg DAILY ORAL 02/24/18 09:00 03/26/18 08:59 02/27/18 08:38 Gabapentin (Neurontin) 800 mg THREE TIMES A DAY ORAL 02/24/18 09:00 03/26/18 08:59 02/27/18 08:37 Glipizide (Glucotrol) 5 mg BIAC ORAL 02/24/18 06:30 03/26/18 06:29 02/27/18 06:40 Heparin Sodium (Porcine) (Heparin 5000 units/ml) 5,000 units EVERY 8 HOURS SUBQ 02/24/18 06:00 03/26/18 05:59 02/27/18 06:00 Insulin Aspart (NovoLOG) BEFORE MEALS AND HS SUBQ 02/24/18 06:30 03/26/18 06:29 02/27/18 06:53 Lidocaine (Xylocaine 5% cream) 1 applic PRN PRN TOPIC Pain Scale (3-5) 02/24/18 03:15 03/26/18 03:14 Lisinopril (Zestril) 10 mg DAILY ORAL 02/24/18 09:00 03/26/18 08:59 02/27/18 08:38 Metformin HCl (Glucophage) 500 mg BID ORAL 02/24/18 09:00 03/26/18 08:59 02/27/18 08:38 Morphine Sulfate (Morphine Sulfate) 2 mg Q4H PRN IVP For Pain 02/24/18 18:00 03/03/18 17:59 02/26/18 08:15 Nitroglycerin (Nitro-Bid) 1 inch TID@0600,1200,1800 TOPIC 02/24/18 19:00 03/26/18 18:59 02/26/18 17:28 Ondansetron HCl (Zofran) 4 mg Q4HR PRN IVP Nausea & Vomiting 02/24/18 03:15 03/26/18 03:14 Jennifer Hughes MD Feb 27, 2018 12:13
--- NOTE | 2018-02-27 13:26 | Cardiology Progress Note ---
Assessment/Plan Status: stable Assessment/Plan Assessment (1) Hypercholesteremia (2) Chest pain (3) CAD (coronary artery disease) (4) DM (diabetes mellitus) (5) HTN (hypertension) (6) Asthma Plan: Echo reviewed, preserved LV function diastolic dysfunction, no wall motion abnormalities Aspirin Nitro SL prn Statin Serial EKG/Troponin Continue blood pressure medications Outpatient endoscopy Stress test negative d/c home Subjective Cardiovascular: Reports: no symptoms Respiratory: Reports: no symptoms Gastrointestinal/Abdominal: Reports: no symptoms Genitourinary: Reports: no symptoms Subjective NO acute events, vitals stable,stress test negative for ischemia Objective Last 24 Hour Vital Signs Date Time Temp Pulse Resp B/P (MAP) Pulse Ox O2 Delivery O2 Flow Rate FiO2 02/27/18 12:11 134/82 02/27/18 10:14 79 18 Room Air 21 02/27/18 09:00 Room Air 02/27/18 08:38 136/88 02/27/18 08:37 94 136/88 02/27/18 08:00 97.1 94 20 136/88 (104) 95 97.1 02/27/18 04:00 98.6 77 24 132/84 (100) 97 98.6 02/27/18 04:00 77 02/27/18 00:00 97.9 80 20 146/85 (105) 97 97.9 02/27/18 00:00 95 02/26/18 22:06 86 20 Room Air 21 02/26/18 21:00 Room Air 02/26/18 20:00 98.7 93 20 132/82 (99) 96 98.7 02/26/18 20:00 84 02/26/18 17:28 129/76 02/26/18 16:00 77 02/26/18 16:00 98.1 96 20 128/79 (95) 95 98.1 General Appearance: no apparent distress, alert EENT: PERRL/EOMI, normal ENT inspection Neck: non-tender, normal alignment Rhythm: NSR Cardiovascular: normal peripheral pulses, normal rate Respiratory/Chest: chest wall non-tender, lungs clear Abdomen: normal bowel sounds, non tender Extremities: normal range of motion, non-tender 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, no motor/sensory deficits Intake and Output 02/26/18 02/27/18 19:00 07:00 Intake Total 240 ml Output Total 400 ml Balance -160 ml Intake Oral 240 ml Output Urine Total 400 ml # Voids 2 2 Laboratory Tests Test 02/27/18 05:50 White Blood Count 6.3 K/UL (4.8-10.8) Red Blood Count 3.93 M/UL (4.70-6.10) L Hemoglobin 12.3 G/DL (14.2-18.0) L Hematocrit 36.5 % (42.0-52.0) L Mean Corpuscular Volume 93 FL (80-99) Mean Corpuscular Hemoglobin 31.4 PG (27.0-31.0) H Mean Corpuscular Hemoglobin Concent 33.8 G/DL (32.0-36.0) Red Cell Distribution Width 11.4 % (11.6-14.8) L Platelet Count 196 K/UL (150-450) Mean Platelet Volume 10.6 FL (6.5-10.1) H Neutrophils (%) (Auto) 64.8 % (45.0-75.0) Lymphocytes (%) (Auto) 24.6 % (20.0-45.0) Monocytes (%) (Auto) 5.7 % (1.0-10.0) Eosinophils (%) (Auto) 3.5 % (0.0-3.0) H Basophils (%) (Auto) 1.4 % (0.0-2.0) Sodium Level 140 MMOL/L (136-145) Potassium Level 4.0 MMOL/L (3.5-5.1) Chloride Level 104 MMOL/L (98-107) Carbon Dioxide Level 30 MMOL/L (21-32) Anion Gap 6 mmol/L (5-15) Blood Urea Nitrogen 14 mg/dL (7-18) Creatinine 1.2 MG/DL (0.55-1.30) Estimat Glomerular Filtration Rate > 60 mL/min (>60) Glucose Level 170 MG/DL (74-106) H Calcium Level 8.6 MG/DL (8.5-10.1) Troponin I 0.000 ng/mL (0.000-0.056) Power Tran M.D. Feb 27, 2018 13:26
[2018-02-27 16:00] VITALS: BP 127/86
--- NOTE | 2018-02-27 18:10 | Internal Med Progress Note ---
Subjective Date of Service: Feb 27, 2018 Physician Name Jenkins,Bennett Attending Physician Wade Ortez MD Current Medications Medications (Trade) Dose Ordered Sig/Flex Route PRN Reason Start Time Stop Time Status Last Admin Dose Admin Acetaminophen (Tylenol) 650 mg Q6H PRN ORAL Mild Pain/Temp > 100.5 02/24/18 03:15 03/26/18 03:14 Acetaminophen/ Hydrocodone Bitart ([place] 10/325) 1 tab Q6HR PRN ORAL For Pain 02/24/18 03:15 03/03/18 03:14 02/27/18 08:45 Albuterol/ Ipratropium (Albuterol/ Ipratropium) 3 ml Q4H PRN HHN Shortness of Breath 02/24/18 10:45 03/01/18 10:44 Amlodipine Besylate (Norvasc) 10 mg DAILY ORAL 02/24/18 09:00 03/26/18 08:59 02/27/18 08:37 Aspirin (ASA) 81 mg DAILY ORAL 02/24/18 09:00 03/26/18 08:59 02/27/18 08:38 Atorvastatin Calcium (Lipitor) 40 mg BEDTIME ORAL 02/27/18 21:00 03/26/18 20:59 Baclofen (Lioresal) 10 mg THREE TIMES A DAY PRN ORAL Muscle Spasm 02/24/18 03:15 03/26/18 03:14 02/26/18 12:32 Dextrose (Dextrose 50%) 25 ml STAT PRN IV Hypoglycemia 02/24/18 03:15 03/26/18 03:14 Dextrose (Dextrose 50%) 50 ml STAT PRN IV Hypoglycemia 02/24/18 03:15 03/26/18 03:14 Diphenhydramine HCl (Benadryl) 25 mg BID PRN ORAL Itching 02/24/18 03:15 03/26/18 03:14 Famotidine (Pepcid) 20 mg DAILY ORAL 02/24/18 09:00 03/26/18 08:59 02/27/18 08:38 Gabapentin (Neurontin) 800 mg THREE TIMES A DAY ORAL 02/24/18 09:00 03/26/18 08:59 02/27/18 12:10 Glipizide (Glucotrol) 5 mg BIAC ORAL 02/24/18 06:30 03/26/18 06:29 02/27/18 06:40 Heparin Sodium (Porcine) (Heparin 5000 units/ml) 5,000 units EVERY 8 HOURS SUBQ 02/24/18 06:00 03/26/18 05:59 02/27/18 06:00 Insulin Aspart (NovoLOG) BEFORE MEALS AND HS SUBQ 02/24/18 06:30 03/26/18 06:29 02/27/18 12:12 Lidocaine (Xylocaine 5% cream) 1 applic PRN PRN TOPIC Pain Scale (3-5) 02/24/18 03:15 03/26/18 03:14 Lisinopril (Zestril) 10 mg DAILY ORAL 02/24/18 09:00 03/26/18 08:59 02/27/18 08:38 Metformin HCl (Glucophage) 500 mg BID ORAL 02/24/18 09:00 03/26/18 08:59 02/27/18 08:38 Morphine Sulfate (Morphine Sulfate) 2 mg Q4H PRN IVP For Pain 02/24/18 18:00 03/03/18 17:59 02/26/18 08:15 Nitroglycerin (Nitro-Bid) 1 inch TID@0600,1200,1800 TOPIC 02/24/18 19:00 03/26/18 18:59 02/27/18 12:11 Ondansetron HCl (Zofran) 4 mg Q4HR PRN IVP Nausea & Vomiting 02/24/18 03:15 03/26/18 03:14 Allergies: Coded Allergies: No Known Allergies (Unverified , 02/27/15) ROS Limited/Unobtainable: No Constitutional: Reports: no symptoms HEENT: Reports: no symptoms Cardiovascular: Reports: no symptoms Respiratory: Reports: no symptoms Gastrointestinal/Abdominal: Reports: no symptoms Genitourinary: Reports: no symptoms Neurologic/Psychiatric: Reports: no symptoms Subjective 62 YO M admitted with chest pain. Cover for Int Sánchez-Dr Ortez. Await cardiolite stress test result. Objective Last Vital Signs Date Time Temp Pulse Resp B/P (MAP) Pulse Ox O2 Delivery O2 Flow Rate FiO2 02/27/18 16:00 97.5 75 20 127/86 (100) 96 97.5 02/27/18 10:14 Room Air 21 Laboratory Tests Test 02/27/18 05:50 White Blood Count 6.3 K/UL (4.8-10.8) Red Blood Count 3.93 M/UL (4.70-6.10) L Hemoglobin 12.3 G/DL (14.2-18.0) L Hematocrit 36.5 % (42.0-52.0) L Mean Corpuscular Volume 93 FL (80-99) Mean Corpuscular Hemoglobin 31.4 PG (27.0-31.0) H Mean Corpuscular Hemoglobin Concent 33.8 G/DL (32.0-36.0) Red Cell Distribution Width 11.4 % (11.6-14.8) L Platelet Count 196 K/UL (150-450) Mean Platelet Volume 10.6 FL (6.5-10.1) H Neutrophils (%) (Auto) 64.8 % (45.0-75.0) Lymphocytes (%) (Auto) 24.6 % (20.0-45.0) Monocytes (%) (Auto) 5.7 % (1.0-10.0) Eosinophils (%) (Auto) 3.5 % (0.0-3.0) H Basophils (%) (Auto) 1.4 % (0.0-2.0) Sodium Level 140 MMOL/L (136-145) Potassium Level 4.0 MMOL/L (3.5-5.1) Chloride Level 104 MMOL/L (98-107) Carbon Dioxide Level 30 MMOL/L (21-32) Anion Gap 6 mmol/L (5-15) Blood Urea Nitrogen 14 mg/dL (7-18) Creatinine 1.2 MG/DL (0.55-1.30) Estimat Glomerular Filtration Rate > 60 mL/min (>60) Glucose Level 170 MG/DL (74-106) H Calcium Level 8.6 MG/DL (8.5-10.1) Troponin I 0.000 ng/mL (0.000-0.056) Intake and Output 02/26/18 02/27/18 19:00 07:00 Intake Total 240 ml Output Total 400 ml Balance -160 ml Intake Oral 240 ml Output Urine Total 400 ml # Voids 2 2 Objective General Appearance: WD/WN, no apparent distress, alert, obese EENT: PERRL/EOMI, normal ENT inspection Neck: non-tender, normal alignment, supple, normal inspection Cardiovascular: normal peripheral pulses, normal rate, regular rhythm, no gallop/murmur, no JVD Respiratory/Chest: chest wall non-tender, lungs clear, normal breath sounds, no respiratory distress, no accessory muscle use Abdomen: normal bowel sounds, non tender, soft, no organomegaly, no mass Extremities: normal range of motion, non-tender 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 Cardiolite stress test = neg (3) CAD (coronary artery disease) (4) DM (diabetes mellitus) Assessment & Plan: Continue novolog sliding scale. (5) HTN (hypertension) Assessment & Plan: Continue lisinopril and norvasc (6) Asthma Status: stable Assessment/Plan Discharge home today Bennett Jenkins MD Feb 27, 2018 18:10
--- NOTE | 2018-02-27 18:36 | General Progress Note ---
Assessment/Plan Status: stable Assessment/Plan anxiety d/o -ativan prn -provided ro/st Subjective Date patient seen: Feb 27, 2018 Neurologic/Psychiatric: Reports: anxiety, depressed, emotional problems Allergies: Coded Allergies: No Known Allergies (Unverified , 02/27/15) Objective Last 24 Hour Vital Signs Date Time Temp Pulse Resp B/P (MAP) Pulse Ox O2 Delivery O2 Flow Rate FiO2 02/27/18 16:00 97.5 75 20 127/86 (100) 96 97.5 02/27/18 16:00 92 02/27/18 12:11 134/82 02/27/18 12:00 97.2 80 20 134/90 (105) 96 97.2 02/27/18 12:00 80 02/27/18 10:14 79 18 Room Air 21 02/27/18 09:00 Room Air 02/27/18 08:38 136/88 02/27/18 08:37 94 136/88 02/27/18 08:00 97.1 94 20 136/88 (104) 95 97.1 02/27/18 08:00 88 02/27/18 04:00 98.6 77 24 132/84 (100) 97 98.6 02/27/18 04:00 77 02/27/18 00:00 97.9 80 20 146/85 (105) 97 97.9 02/27/18 00:00 95 02/26/18 22:06 86 20 Room Air 21 02/26/18 21:00 Room Air 02/26/18 20:00 98.7 93 20 132/82 (99) 96 98.7 02/26/18 20:00 84 Intake and Output 02/26/18 02/27/18 19:00 07:00 Intake Total 240 ml Output Total 400 ml Balance -160 ml Intake Oral 240 ml Output Urine Total 400 ml # Voids 2 2 Laboratory Tests 02/27/18 05:50: White Blood Count 6.3, Red Blood Count 3.93L, Hemoglobin 12.3L, Hematocrit 36.5L , Mean Corpuscular Volume 93, Mean Corpuscular Hemoglobin 31.4H, Mean Corpuscular Hemoglobin Concent 33.8, Red Cell Distribution Width 11.4L, Platelet Count 196, Mean Platelet Volume 10.6H, Neutrophils (%) (Auto) 64.8, Lymphocytes (%) (Auto) 24.6, Monocytes (%) (Auto) 5.7, Eosinophils (%) (Auto) 3.5H, Basophils (%) (Auto) 1.4, Sodium Level 140, Potassium Level 4.0, Chloride Level 104, Carbon Dioxide Level 30, Anion Gap 6, Blood Urea Nitrogen 14, Creatinine 1.2, Estimat Glomerular Filtration Rate > 60, Glucose Level 170H, Calcium Level 8.6, Troponin I 0.000 Height (Feet): 5 Height (Inches): 10.00 Weight (Pounds): 260 General Appearance: no apparent distress, alert Neurologic: oriented x 3, responsive, depressed affect Nya Beavers MD Feb 27, 2018 18:36
[2018-02-27] MEDS ORDERED: Atorvastatin 20mg tab ORAL SCH (21:00)
--- NOTE | 2018-02-28 11:12 | Cardiology Report ---
APPROVED REPORT EXAM: Two-dimensional and M-mode echocardiogram with Doppler and color Doppler. INDICATION Chest Pain M-Mode DIMENSIONS IVSd1.5 (0.7-1.1cm)Left Atrium (MM)4.0 (1.6-4.0cm) LVDd4.7 (3.5-5.6cm)Aortic Root3.3 (2.0-3.7cm) PWd1.7 (0.7-1.1cm)Aortic Cusp Exc.1.7 (1.5-2.0cm) IVSs1.4 cm LVDs3.3 (2.5-4.0cm) PWs2.1 cm Technically difficult study due to poor acoustinal windows . Normal left ventricular chamber size, systolic function and wall motion to extent visualized. Left ventricular ejection fraction estimated to be 55-60% . No evidence of ventricular hypertrophy . No evidence of pericardial effusion. Mild left atrial enlargments . Right cardiac chamber sizes are within normal limits . Focal aortic valve sclerosis with normal cusp excursion. Thickened mitral valve leaflets with normal excursion. Mitral annulus and aortic root calcification. Pulmonic valve not well visualized. Normal tricuspid valve structure. IVC at size2.2 with physiological collapse . A color flow and spectral Doppler study was performed and revealed: No aortic regurgitation. Trace mitral regurgitation. Normal left ventricular diastolic function . Trace tricuspid regurgitation. Tricuspid systolic velocities suggests peak right ventricular systolic pressure of 17mmHg
--- NOTE | 2018-03-01 15:04 | Discharge Summary ---
Discharge Summary Discharge Summary _ DATE OF ADMISSION: 02/24/2018 DATE OF DISCHARGE: 02/27/2018 REASON FOR ADMISSION: 63 years old male with past medical history significant for hypertension, diabetes mellitus, coronary artery disease, questionable myocardial infarction, hyperlipidemia, cerebrovascular accident, asthma, initially presented to [facility] with complaint of chest pain. Upon evaluation troponin was negative. EKG revealed normal sinus rhythm, no acute ischemic changes. Noted elevated d-dimer. Chest x-ray was unremarkable. Patient was transferred to [facility] for further management with diagnosis of chest pain , rule out acute coronary syndrome. 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 Dr. Tran pulmonary Dr. Hughes psychiatrist dr Beavers [facility] COURSE: Patient admitted to telemetry floor. Serial troponin were negative. EKG revealed no acute ischemic changes. Patient was ruled out for acute myocardiac infarction. Echocardiogram revealed preserved ejection fraction 55-60%. No evidence of ventricular hypertrophy. No evidence of pericardial effusion. Right ventricular systolic pressure of 17. Peanut Blancher closely followed. Venous duplex bilateral lower extremity was negative for acute DVT. Antiplatelet therapy with aspirin provided. Statin was continued. Nitroglycerin started topically . Blood pressure was managed with calcium channel abraham and GOLDY inhibitor . DVT and GI prophylaxis provided . Myocardial perfusion scan was nonischemic with calculated ejection fraction of 70%. Chest pain was likely secondary to costochondritis. Supplemental oxygen provided as needed to keep pulse oximetry above 92%. Pulmonary toilet provided as needed. BiPAP was provided at night and as needed Patient was complaining of epigastric pain . GI cocktail provided with relief. Recommended outpatient endoscopy with evaluation for H pylori. Blood sugar was managed with oral anti-glycemic and sliding scale of insulin as needed. Hemoglobin A1c -8 , not at goal. Patient will need further optimization of anti-glycemic regimen as outpatient. . Bowel regimen instituted. Supportive care provided . Pain management as outpatient was recommended with nonsteroid anti- inflammatory medications Psychiatrist closely followed, and diagnosed patient with anxiety disorder. Reality orientation and supportive therapy provided. Patient was stable for discharge. Sleep study as outpatient recommended FINAL DIAGNOSES: Chest pain Probably costochondritis Asthma Coronary artery disease Hypertension Hyperlipidemia Diabetes mellitus ETOH use, possible abuse Probable obstructive sleep apnea Anxiety disorder DISCHARGE MEDICATIONS: See Medication Reconciliation list. DISCHARGE INSTRUCTIONS: Patient was discharged home . Follow up with primary care provider in one week. Sleep study as outpatient recommended. Paalk Wagoner NP Mar 01, 2018 15:04
--- NOTE | 2018-03-02 00:44 | Cardiology Report ---
APPROVED REPORT EKG Measurement Heart [id number] Normal sinus rhythm Incomplete right bundle branch block Nonspecific T wave abnormality Abnormal ECG
--- NOTE | 2018-03-02 00:48 | Cardiology Report ---
APPROVED REPORT EKG Measurement Heart [id number] Normal sinus rhythm Left axis deviation T wave abnormality, consider anterolateral ischemia Abnormal ECG
== END 2018-02-27 17:59 | disposition home or self-care (01) | DRG 206 ==
LOC: 2E 02-24 00:32
DX: M94.0 Chondrocostal junction syndrome [Tietze] (principal); R07.9 Chest pain, unspecified; I10 Essential (primary) hypertension; J45.909 Unspecified asthma, uncomplicated; I25.10 Atherosclerotic heart disease of native coronary artery without angina pectoris; Z98.61 Coronary angioplasty status; E78.5 Hyperlipidemia, unspecified; E11.9 Type 2 diabetes mellitus without complications; F10.10 Alcohol abuse, uncomplicated; G47.33 Obstructive sleep apnea (adult) (pediatric); F41.9 Anxiety disorder, unspecified
CPT/HCPCS: 36415; 71045; 78452; 80048; 80053; 80061; 82962; 82977; 83036; 83735; 84100; 84484; 85025; 86705; 86709; 86803; 87340; 93005; 93017; 93306; 93970; 94664; J1815; J2785